=== PATIENT | female | born 1940 | race Caucasian/White ===

== ENCOUNTER 2019-06-07 02:19 | Inpatient (IN) | payer OTHER, MEDICARE ==
[~2019-06-07] VITALS: Ht 154.9 cm; Wt 51.3 kg
--- NOTE | ~2019-06-07 | EMS ---
[address] [address] EMS Patient Care Report Name: DORIS MARTINS Room #: PRE Amaris#: [id number] Admission: Attend Phys: Discharge: Date of : 42 Report #: [id number] THIS REPORT FOR: //name// Report Transmitted: 06/07/2019 01:51 EMS Care Summary [facility] MED-ACT Incident [id number] @ 06/07/2019 01:35 Incident Location [address] [place] [address] Patient DORIS MARTINS Female, 79 Years 1940 Patient Address [address] [place] [address] Patient History Diabetes, Patient Allergies No known allergies, Patient Medications Insulin, Chief Complaint Altered Mental status Disposition Transported No Lights/[place] Dispatch Reason Choking Transported To [facility] Narrative M1134 was dispatched to the listed location for a code 1 choking. Upon arrival patient was lying supine in bed with minor snoring respirations. 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 stated that he woke up to her snoring and tried to wake her. [address] [address] EMS Patient Care Report Name: DORIS MARTINS Room #: [facility] [place].#: [id number] Admission: Attend Phys: Discharge: Date of : 42 Report #: [id number] stated that the patient was not able to be woken up and he thought that she was choking on something. did not think she had anything to eat or drink. Patient was able to open eyes on command but not keep them open, patient was able to follow some commands. Patient was able to make some verbal communication but some of it was confusion and some of it was coherent. A CPHSS was able to be performed once we moved patient to the back of the ambulance, patient appeared to be able to follow commands better. Negative arm drift, negative facial droop, speech appeared to still be slurred. Stroke activation and LVO screening was completed. stated that she had not had any recent trauma or illnesses and that her only PMH was diabetes. Denied any cardiac Hx. Initial Vitals @01:49MI Suspected: false @02:02P: 102,R: 17,BP: 120/61,EtCO2: 27,SpO2: 92, @02:07P: 86,R: 5,BP: 127/55,EtCO2: 40,SpO2: 92, @01:57P: 95,R: 21,BP: 123/61,Temp: 96.5F,EtCO2: 12,SpO2: 94, @01:44P: 92,R: 20,BP: 126/63,Pain: 0/10,GCS: 12,Glucose: 195,SpO2: 88,Revised Trauma: 11, Assessments @01:44MENTAL:Confused,SKIN:Diaphoresis,Pale,HEENT:LUNG SOUNDS:Left Lower: Distension,Right Lower: Distension,Right Lower: Mass,General: No Abnormalities,Left Upper: No Abnormalities,Right Upper: No Abnormalities,ABDOMEN:Left Lower: Distension,Right Lower: Distension,Right Lower: Mass,General: No Abnormalities,Left Upper: No Abnormalities,Right Upper: No Abnormalities,PELVIS//GI:EXTREMITIES:Left Arm: No Abnormalities,Right Arm: No Abnormalities,Left Leg: No Abnormalities,Right Leg: No Abnormalities,PULSE:NEURO:Abnormal Gait,Slurred Speech, Impression Altered Mental Status Procedures @01:4912-Lead ECGResponse: UnchangedSucceeded@02:02Normal Saline (.9% NaCl) 150cc (20 ga) Site: Hand-RightResponse: UnchangedSucceeded Timeline 01:35,Call Received 01:35,Psap Call 01:35,Dispatched 01:36,En Route 01:42,On Scene 01:43,At Patient 01:44,BP: 126/63 M,PULSE: 92,RR: 20 R,SPO2: 88 Ox,ETCO2: ,B,PAIN: 0,GCS: 12, 01:49,12-Lead ECG,Response: UnchangedSucceeded, [facility] [address] [place] [address] EMS Patient Care Report Name: DORIS MARTINS Room #: PRE ER M.R.#: [id number] Admission: Attend Phys: Discharge: Date of : 42 Report #: [id number] 01:49,BP: / M,PULSE: ,RR: R,SPO2: Ox,ETCO2: ,BG: ,PAIN: ,GCS: , 01:57,BP: 123/61 M,PULSE: 95,RR: 21 R,SPO2: 94 Ox,ETCO2: 12 ,BG: ,PAIN: ,GCS: , 02:02,Normal Saline (.9% NaCl) 150cc 20 ga Site: Hand-Right,Response: UnchangedSucceeded, 02:02,BP: 120/61 M,PULSE: 102,RR: 17 R,SPO2: 92 Ox,ETCO2: 27 ,BG: ,PAIN: ,GCS: , 02:04,Depart Scene 02:07,BP: 127/55 M,PULSE: 86,RR: 5 R,SPO2: 92 Ox,ETCO2: 40 ,BG: ,PAIN: ,GCS: , 02:12,At Destination 02:46,Call Closed Disclaimer v1.1 Copyright 2019 [employer] This EMS Care Summary contains data elements from the applicable legal record (which may be displayed differently). It is designed to provide pertinent information for the following purposes: continuity of care, clinical quality, and state data reporting. The complete legal record is available to ED staff and administrators of the receiving hospital in [employer]'s Patient Tracker. All data is provided "as is."
[2019-06-07 02:21] VITALS: BP 123/99
[2019-06-07 03:09] LABS: ABSOLUTE NEUTROPHILS 2.4 thou/uL (1.4-8.2); BASOPHILS 0.5 % (0.0-2.0); EOSINOPHILS 3.4 % (0.0-3.0); HEMATOCRIT 34.3 % (37.0-47.0); LYMPHOCYTES 22.8 % (24.0-44.0); MCHC 32.1 g/dL (28.0-37.0); MCV 93.6 fL (80.0-100.0); MONOCYTES 8.9 % (1.0-8.0); PLATELET COUNT 188 thou/uL (150-400); POLYS 64.4 % (36.0-66.0); RBC 3.67 mil/uL (4.20-5.00); RDW 14.2 % (10.5-14.5); WBC 3.7 thou/uL (4.0-11.0)
[2019-06-07 03:12] LABS: ANION GAP 5 mmol/L (7-16); BUN 23 mg/dL (7-18); CALCIUM 8.5 mg/dL (8.5-10.1); CHLORIDE 103 mmol/L (98-107); CO2 31 mmol/L (21-32); CREATININE 0.7 mg/dL (0.6-1.0); GLUCOSE 174 mg/dL (74-106); SODIUM 139 mmol/L (136-145)
[2019-06-07 03:23] LABS: ALBUMIN 3.3 g/dL (3.4-5.0); MAGNESIUM 1.6 mg/dL (1.8-2.4); SGOT 27 U/L (15-37); SGPT 18 U/L (30-65); TOTAL BILIRUBIN 0.5 mg/dL (<0.1-1.0); TOTAL PROTEIN 6.2 g/dL (6.4-8.2); TROPONIN-I <0.06 ng/mL (<0.06)
[2019-06-07 03:28] LABS: URINE BILIRUBIN NEGATIVE (Negative); URINE BLOOD 1+ (Negative); URINE CLARITY CLEAR; URINE COLOR YELLOW; URINE GLUCOSE-RANDOM* 1+ (Negative); URINE KETONES NEGATIVE (Negative); URINE LEUKOCYTES-REFLEX NEGATIVE (Negative); URINE NITRITE-REFLEX NEGATIVE (Negative); URINE PROTEIN (DIPSTICK) NEGATIVE (Negative); URINE SPECIFIC GRAVITY 1.015 (1.005-1.035); URINE UROBILINOGEN 0.2 E.U./dl (0.2-1.0)
[2019-06-07 03:36] LABS: AMP/METHAMP Negative (Negative); BARBITURATES Negative (Negative); BENZODIAZEPINES Negative (Negative); COCAINE Negative (Negative); METHADONE Negative (Negative); OPIATES Negative (Negative); PCP Negative (Negative)
[2019-06-07 03:40] LABS: SQUAMOUS 0-3 Few /LPF (0-3)
[2019-06-07 03:41] LABS: BACTERIA-REFLEX None Seen /HPF (None Seen); CASTS None Seen /LPF (None Seen); CRYSTALS None Seen /LPF (None Seen); MUCUS 0-3 Light strn/LPF (None Seen); URINE RBC 3-10 Few /HPF (0-2); URINE WBC-REFLEX 0-5 Rare /HPF (0-5)
--- NOTE | 2019-06-07 08:12 | EKG ---
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 : 1940 Requested By: Marlon Parks Order Number: [id number] MD: Dion Schaefer Measurements Intervals [place] Rate: 80 P: 74 NM: 186 QRS: -32 QRSD: 135 T: 85 QT: 454 QTc: 524 Interpretive Statements Sinus rhythm Left bundle branch block Compared to ECG 06/30/2016 15:52:40 Left bundle-branch block is now present Electronically Signed On 06-07-2019 8:12:39 CDT by Dion Schaefer [email or web address] <ELECTRONICALLY SIGNED> By: Dion Schaefer MD, [facility] 06/07/19 0812 9 9 Dion Schaefer MD, FAC /EPI
--- NOTE | 2019-06-07 09:29 | NUR ---
PT. VISITING WITH FAMILY AT BEDSIDE. PT. EXPRESSING HER DESIRE TO GO HOME. PT. DAUGHTER BEDSIDE AND ENCOURAGING PT. TO STAY. PT. SIGNIFICANT OTHER AT BEDSIDE.
--- NOTE | 2019-06-07 10:31 | NUR ---
PT. AGREEABLE TO ADMITTANCE. PT. AND FAMILY MADE AWARE OF PT. ROOM ASSIGNMENT
[2019-06-07 10:32] VITALS: BP 108/61
--- NOTE | 2019-06-07 10:35 | NUR ---
ATTEMPTED TO CALL REPORT TO RECEIVING RN. RECEIVING RN WILL CALL BACK FOR REPORT
[2019-06-07 11:00] VITALS: BP 102/41
[2019-06-07 11:36] VITALS: BP 105/60
--- NOTE | 2019-06-07 15:14 | NUR ---
ASSESSMENT: CM REVIEWED CHART AND MET WITH PATIENT AT THE BEDSIDE. PT REPORTS SHE LIVES AT HOME WITH HER . PT REPORTS HAVING A COUPLE OF STEPS TO ENTER THROUGH THE GARAGE WITH NO HANDRAILS AND REPORTS HER BEDRROM IS ON THE FIRST LEVEL. PT REPORTS SHE HAS A BASEMENT WITH ABOUT 14 STEPS WITH HANDRAILS. PT REPORTS SHE AMBULATES INDEPENDENTLY AND IS INDEPENDENT WITH ADLS. PT REPORTS SHE IS STILL VERY ACTIVE AND STILL SWIMS. PT REPORTS SHE HAS NOT HAD HH IN THE PAST OR BEEN TO A SNF. CM DISCUSSED ROLE. PT DOES NOT ANTICIPATE HAVING ANY NEEDS AT DISCHARGE. CM WILL CONTINUE TO FOLLOW TO ASSIST NEEDED.
[2019-06-07 15:31] VITALS: BP 105/48
[2019-06-07 19:37] VITALS: BP 112/52
--- NOTE | 2019-06-07 20:00 | NUR ---
pt admitted from ER , pt is A&O X3, but pt is forgetful , pt starts NS @ 125ML/HR, RN has called to report pt 's low bp and abnormal chest x-ray, new order received, but pt refused to start IV and po ABX, has notified about pt's refusion.
[2019-06-08 00:22] VITALS: BP 116/54
[2019-06-08 04:32] VITALS: BP 136/59
[2019-06-08 04:58] LABS: HEMOGLOBIN 11.1 gm/dL (12.0-15.0); MCH 30.1 pg (26.0-34.0); MCHC 32.6 g/dL (28.0-37.0); MCV 92.4 fL (80.0-100.0); RBC 3.68 mil/uL (4.20-5.00); RDW 13.9 % (10.5-14.5); WBC 5.2 thou/uL (4.0-11.0)
[2019-06-08 05:10] LABS: CALCIUM 8.6 mg/dL (8.5-10.1); CREATININE 0.6 mg/dL (0.6-1.0); MAGNESIUM 1.7 mg/dL (1.8-2.4); POTASSIUM 3.8 mmol/L (3.5-5.1)
[2019-06-08 07:50] VITALS: BP 128/50
[2019-06-08] MEDS ORDERED: AZITHROMYCIN 2250 MG PO (08:51)
[2019-06-08] MEDS ORDERED: HOME MEDICATION SUBQ ×2 (08:51)
[2019-06-08 11:13] VITALS: BP 128/50
[2019-06-08 11:46] VITALS: BP 97/51
--- NOTE | 2019-06-08 12:24 | NUR ---
pt is A&OX3, pt's bs and vs are stable, pt has dose abx and mag 2g /50ml iv x 1time, pt was going home with family at 1220pm, RN has giving pt and family d/c teaching, they understander well.
--- NOTE | 2019-06-09 09:41 | H ---
[facility] [place] [address] HISTORY AND PHYSICAL Name: DORIS MARTINS Room #: 362-P [facility] IN M.R.#: [id number] Admission: 06/07/19 Attend Phys: Alysia Brown MD Discharge: 06/08/19 Date of : 42 Report #: [id number] THIS REPORT FOR: //name// CC: Alysia Brown DATE OF SERVICE: 06/07/2019 ATTENDING PHYSICIAN: Alysia Brown MD CHIEF COMPLAINT: Being unresponsive at home. HISTORY OF PRESENT ILLNESS: The patient is a 79-year-old female who was difficult to arouse at night. She was noted to have excessive snoring and was lethargic and unresponsive with confused speech. The patient was noted to have hypoxia with oxygen saturation of around 87%. She had denied having any vomiting, diarrhea, urinary symptoms or sweating. The patient was evaluated in the ER and noted to have possible pneumonia. The patient is a very tightly controlled diabetic and tries to manage on insulin depending on her blood sugars. PAST MEDICAL HISTORY: Significant for insulin-dependent diabetes mellitus and a shoulder injury 9 years ago. ALLERGIES: She is not known to be allergic to medication. MEDICATIONS: Medication she was currently on was insulin. REVIEW OF SYSTEMS: She denied having any cough, nausea, vomiting, abdominal pain or any urinary symptoms. SOCIAL HISTORY: She is , lives with , does not smoke or drink alcohol. PHYSICAL EXAMINATION: GENERAL: Pleasant elderly lady who was resting, did not appear to be in distress. She was awake, alert, oriented to place and person. VITAL SIGNS: She was afebrile with a temperature of 37.1, pulse of 81, respiratory rate of 16, blood pressure 128/50, oxygen saturation 96% on room air. HEENT: Skull was atraumatic. There was no pallor, no icterus. Mucosa was moist. NECK: Supple. LUNGS: Clear to auscultation bilaterally with no wheezing or crackles. HEART: First and second normal. ABDOMEN: Soft, nontender, bowel sounds normally heard. EXTREMITIES: Did not reveal any edema. [facility] [address] [place] [address] HISTORY AND PHYSICAL Name: DORIS MARTINS Room #: 362-[facility] IN .R.#: [id number] Admission: 06/07/19 Attend Phys: Alysia Brown MD Discharge: 06/08/19 Date of : 42 Report #: [id number] NEUROLOGIC: Nonfocal. LABORATORY DATA: Labs showed a white cell count of 5.2, hemoglobin of 11.1, hematocrit 34 and a platelet count of 188. Sodium was 141, potassium 3.8, chloride 105, bicarbonate 29, BUN of 15, creatinine of 0.6 and a glucose of 127. A calcium was 8.6, magnesium of 1.7. Blood cultures were negative. A chest x-ray showed diffuse infiltrates in both lungs, more prominent on the right region. ASSESSMENT: 1. Delirium. 2. Possible pneumonia. 3. Hypomagnesemia. PLAN: To continue on the IV antibiotics and discussed with the patient that the possibility of a low hypoglycemic attack, try to cut back on her insulin use. Also, we will continue on a Z-LEATHA or Zithromax for the next seven days in view of the interstitial infiltrates and follow up in the office. <ELECTRONICALLY SIGNED> By: Alysia Brown MD 06/09/19 0941 [id number] [id number] Alysia Brown MD /nt
== END 2019-06-08 12:35 | disposition home or self-care (01) | DRG 70 ==
LOC: ER 02:19 → EROBS 04:08 → 3W 11:08
PROVIDERS: Emergency Medicine; ADMIT Internal Medicine
DX: G93.41 Metabolic encephalopathy (principal); J18.9 Pneumonia, unspecified organism; E83.42 Hypomagnesemia; E86.0 Dehydration; E11.65 Type 2 diabetes mellitus with hyperglycemia; Z79.4 Long term (current) use of insulin
CPT/HCPCS: 10879

== ENCOUNTER 2020-02-13 03:15 | Emergency (ER) | payer OTHER, MEDICARE ==
[~2020-02-13] VITALS: Ht 154.9 cm; Wt 65.8 kg
--- NOTE | ~2020-02-13 | EMS ---
[address] [address] EMS Patient Care Report Name: DORIS MARTINS Room #: DEP [facility] Glez#: [id number] Admission: 02/13/20 Attend Phys: Discharge: 02/13/20 Date of : 41 Report #: [id number] THIS REPORT FOR: //name// Report Transmitted: 02/13/2020 06:38 EMS Care Summary [facility] MED-ACT Incident [id number] @ 02/13/2020 02:35 Incident Location [address] [place] [address] Patient DORIS MARTINS Female, 80 Years 1940 Patient Address [address] [place] [address] Patient History Diabetes,Type 1 Diabetes, Patient Allergies No known allergies, Patient Medications Insulin, Chief Complaint altered loc Disposition Transported No Lights/[place] Dispatch Reason Diabetic Problem Transported To [facility] Narrative M1134 arrived on scene to find the patient laying supine in bed. Patient's advised that she came to bed around midnight last night and was fine then and found her this morning to be altered. He advised that her only medical history is type 1 diabetes and her only medicine is insulin, he thought her [facility] [address] [place] [address] EMS Patient Care Report Name: DORIS MARTINS Room #: DEP Amaris#: [id number] Admission: 02/13/20 Attend Phys: Discharge: 02/13/20 Date of : 42 Report #: [id number] sugar was low and called 911. Oxygen applied to due low SPO2, When asked patient would open her eyes and follow commands and knew here name and but not the date, time, or event. IV was established during transport BG was double checked and returned normal again. No other findings throughout EMS care. Report given to RN in ER room 6 at [place]. Initial Vitals @02:51P: 103,PR Suspected: false @03:11P: 88,R: 18,BP: 101/32,Pain: 0/10,GCS: 13,SpO2: 95,Revised Trauma: 12, @02:47P: 101,R: 16,BP: 123/65,Pain: 0/10,GCS: 13,Glucose: 146,SpO2: 88,Revised Trauma: 12, Assessments @02:46MENTAL:Person Oriented,Event Oriented,SKIN:Diaphoresis,HEENT:LUNG SOUNDS:General: No Abnormalities,Left Upper: No Abnormalities,Right Upper: No Abnormalities,Left Lower: No Abnormalities,Right Lower: No Abnormalities,ABDOMEN:General: No Abnormalities,Left Upper: No Abnormalities,Right Upper: No Abnormalities,Left Lower: No Abnormalities,Right Lower: No Abnormalities,PELVIS//GI:No Abnormalities,EXTREMITIES:Left Arm: No Abnormalities,Right Arm: No Abnormalities,Left Leg: No Abnormalities,Right Leg: No Abnormalities,PULSE:NEURO:No Abnormalities, Impression Altered Mental Status Procedures @02:5112-Lead ECGResponse: UnchangedSucceeded@03:08Saline Lock 10cc (20 ga) Site: Forearm-LeftResponse: UnchangedSucceeded Timeline 02:34,Call Received 02:34,Psap Call 02:35,Dispatched 02:37,En Route 02:43,On Scene 02:45,At Patient 02:47,BP: 123/65 M,PULSE: 101,RR: 16 R,SPO2: 88 Ox,ETCO2: ,B,PAIN: 0,GCS: 13, 02:51,12-Lead ECG,Response: UnchangedSucceeded, 02:51,BP: / M,PULSE: 103,RR: R,SPO2: Ox,ETCO2: ,BG: ,PAIN: ,GCS: , 03:02,Depart Scene 03:08,Saline Lock 10cc 20 ga Site: Forearm-Left,Response: UnchangedSucceeded, 03:11,BP: 101/32 M,PULSE: 88,RR: 18 R,SPO2: 95 Ox,ETCO2: ,BG: ,PAIN: 0,GCS: 13, 03:11,At Destination 03:35,Call Closed [address] [address] EMS Patient Care Report Name: DORIS MARTINS Room #: DEP Amaris#: [id number] Admission: 02/13/20 Attend Phys: Discharge: 02/13/20 Date of : 42 Report #: [id number] Disclaimer v1.1 Copyright 2020 [employer] This EMS Care Summary contains data elements from the applicable legal record (which may be displayed differently). It is designed to provide pertinent information for the following purposes: continuity of care, clinical quality, and state data reporting. The complete legal record is available to ED staff and administrators of the receiving hospital in [employer]'s Patient Tracker. All data is provided "as is."
[~2020-02-13 03:15] MED LIST: AZITHROMYCIN 2250 MG PO; HOME MEDICATION SUBQ
[2020-02-13 03:39] LABS: ABSOLUTE NEUTROPHILS 2.4 thou/uL (1.4-8.2); EOSINOPHILS 6.8 % (0.0-3.0); HEMATOCRIT 36.2 % (37.0-47.0); HEMOGLOBIN 11.9 gm/dL (12.0-15.0); LYMPHOCYTES 30.4 % (24.0-44.0); MCH 30.6 pg (26.0-34.0); MCHC 32.8 g/dL (28.0-37.0); MCV 93.4 fL (80.0-100.0); MONOCYTES 8.9 % (1.0-8.0); PLATELET COUNT 199 thou/uL (150-400); POLYS 52.9 % (36.0-66.0); RBC 3.87 mil/uL (4.20-5.00); RDW 13.4 % (10.5-14.5); WBC 4.5 thou/uL (4.0-11.0)
[2020-02-13 03:45] LABS: ANION GAP 6 mmol/L (7-16); BUN 27 mg/dL (7-18); CALCIUM 8.7 mg/dL (8.5-10.1); CHLORIDE 100 mmol/L (98-107); CO2 31 mmol/L (21-32); CREATININE 0.9 mg/dL (0.6-1.0); GLUCOSE 145 mg/dL (74-106); POTASSIUM 3.7 mmol/L (3.5-5.1); SODIUM 137 mmol/L (136-145)
[2020-02-13 03:57] LABS: ALBUMIN 3.3 g/dL (3.4-5.0); MAGNESIUM 1.9 mg/dL (1.8-2.4); SGOT 30 U/L (15-37); SGPT 26 U/L (30-65); TOTAL BILIRUBIN 0.7 mg/dL (0.2-1.0); TOTAL PROTEIN 6.1 g/dL (6.4-8.2); TROPONIN-I <0.06 ng/mL (<0.06)
[2020-02-13 05:12] LABS: AMP/METHAMP Negative (Negative); BARBITURATES Negative (Negative); BENZODIAZEPINES Negative (Negative); COCAINE Negative (Negative); METHADONE Negative (Negative); OPIATES Negative (Negative); PCP Negative (Negative)
[2020-02-13 05:19] LABS: URINE CLARITY SL HAZY; URINE COLOR YELLOW; URINE PROTEIN (DIPSTICK) NEGATIVE (Negative); URINE SPECIFIC GRAVITY 1.025 (1.005-1.035)
[2020-02-13 05:20] LABS: URINE BILIRUBIN NEGATIVE (Negative); URINE BLOOD 2+ (Negative); URINE GLUCOSE-RANDOM* NEGATIVE (Negative); URINE KETONES NEGATIVE (Negative); URINE LEUKOCYTES-REFLEX NEGATIVE (Negative); URINE NITRITE-REFLEX NEGATIVE (Negative); URINE UROBILINOGEN 0.2 E.U./dl (0.2-1.0)
[2020-02-13 05:51] LABS: SQUAMOUS 0-3 Few /LPF (0-3); URINE WBC-REFLEX 0-5 Rare /HPF (0-5)
[2020-02-13 05:52] LABS: BACTERIA-REFLEX 1-9 Few /HPF (None Seen); CASTS None Seen /LPF (None Seen); CRYSTALS None Seen /LPF (None Seen); MUCUS 0-3 Light strn/LPF (None Seen)
[2020-02-13 06:20] VITALS: BP 124/50
--- NOTE | 2020-02-13 16:38 | EKG ---
[facility] [place] [address] ELECTROCARDIOGRAM REPORT Name: DORIS MARTINS Room #: DEP [facility]#: [id number] Admission: 02/13/20 Attend Phys: Discharge: 02/13/20 Date of : 42 Report #: [id number] THIS REPORT FOR: cc: Alysia Vences MD, Stany A. MD Lundgren,Dion Upton MD 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 02/13/20 1637 0333 0333 Dion Schaefer MD, [facility] /EPI
== END 2020-02-13 06:41 | disposition home or self-care (01) ==
LOC: ER 03:15
PROVIDERS: Emergency Medicine
DX: R31.29 Other microscopic hematuria (principal); R41.0 Disorientation, unspecified; E11.649 Type 2 diabetes mellitus with hypoglycemia without coma; Z79.2 Long term (current) use of antibiotics

== ENCOUNTER 2020-06-11 03:35 | Inpatient (IN) | payer OTHER, MEDICARE ==
[~2020-06-11] VITALS: Ht 117.3 cm; Wt 53.3 kg
--- NOTE | ~2020-06-11 | EEG ---
[facility] [place] [address] ELECTROENCEPHALOGRAM Name: DORIS MARTINS Room #: 452-P [facility] IN M.R.#: [id number] Admission: 06/11/20 Attend Phys: Leonard Hyatt MD Discharge: 06/12/20 Date of : 42 Report #: [id number] THIS REPORT FOR: //name// CC: Leonard Hatfield Vangie DATE OF SERVICE: 06/11/2020 FINDINGS: This patient is being evaluated for the possibility of seizure. EEG was done by placing the electrodes by standard 10-20 system of electrode placement. Both referential and sequential montages were used for recording, a lot of artifact is present. Background activity is difficult to determine because of a lot of artifact. It does appear to be about 8 Hz and 30 microvolt. The patient became drowsy and that is associated with bilateral slowing and vertex sharp waves. Photic stimulation is unremarkable. Throughout the record, no active epileptiform activity was noticed. IMPRESSION: A lot of artifact is present, making the interpretation of this EEG difficult. It does not appear to be showing any active epileptiform activity. It does appear to be some nonspecific slowing, which can occur with drowsiness, effect of psychotropic medication, dementia, encephalopathy, etc. Clinical correlation recommended. By: 1135 1145 Bubba Clayton MD /nt
--- NOTE | ~2020-06-11 | HC ---
[facility] [place] [address] CONSULTATION Name: DORIS MARTINS Room #: 452-P ADM IN M.R.#: [id number] Admission: 06/11/20 Attend Phys: Leonard Hyatt MD Discharge: Date of : 42 Report #: [id number] THIS REPORT FOR: cc: Alysia Vences MD, Stany A. MD Khosla, Parveen K. MD ~ DATE OF SERVICE: 06/11/2020 HISTORY OF PRESENT ILLNESS: This is a 80-year-old female patient who was evaluated for the possibility of seizure. I reviewed the patient's records. I talked to the patient. I talked to the significant other and it looks like the patient has been admitted multiple times with altered mental status. She said yesterday she passed out. She has difficult time answering the questions. She thinks it happened because of low blood sugar. When EMS arrived, the blood sugar was 69, but it is not clear what the blood sugar was before. Significant other says that there was some question of shaking when it happened. I reviewed prior records. This looks like she had CT scan done and she has been admitted with the same kind of confusion. Review of systems indicates she has a history of diabetes. She says her blood sugar does go down. It does go into 40s sometime. She has a history of hypomagnesemia. She has a history of community-acquired pneumonia in the past. She was given Keppra in the Emergency Room. She has an EEG ordered for her, which is not done yet. REVIEW OF SYSTEMS: A 14-point review of system was carried out. She still looks confused to me and does not appear to be completely on her baseline, but she is not complaining of any eye, ENT, cardiac, respiratory, , musculoskeletal, constitutional, dermatological, hematological, psychiatric, throat symptom associated with present symptomatology. She had some nausea yesterday, which has resolved. PAST MEDICAL HISTORY: Positive for episode of altered mental status. It is not clear if they were hypoglycemia or not. FAMILY HISTORY: Unremarkable. Negative for any early age stroke. SOCIAL HISTORY: She does not smoke or drink alcohol. PHYSICAL EXAMINATION: Indicates she is alert and responsive. She can tell me what month it is. She could not tell me the exact date. She can name the present president, but cannot do the one before. Cranial nerve examination 2-12 was difficult, but I think she can move in all directions her eyes and she does reasonably well with the visual field evaluation. She does not appear to have [address] [address] CONSULTATION Name: DORIS MARTINS Room #: 452-P [facility] IN .R.#: [id number] Admission: 06/11/20 Attend Phys: Leonard Hyatt MD Discharge: Date of : 42 Report #: [id number] any meningeal sign. She moves all 4 extremities. Her position sense is intact. Reflexes are symmetrical. Her sensation, she does have a sensation and she said her feeling is intact on both sides. There is no cerebellar sign. I could not look at the patient's fundus. She is not having any respiratory difficulty. Her cardiac examination is unremarkable. She is reasonably well-developed individual. Her blood pressure is 112/45, respirations 13, pulse is 85, temperature is 97.9. LABORATORY DATA: Her white count is 4.6. She did have a CT scan of the head, which showed a question of meningioma. 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 That is an epileptiform area and can give rise to seizure, but this patient also had recurrent episode of hypoglycemia at least by history. Here, her blood sugar is not too low when checked by EMS, but it may have been lower before that. I think we need to work her up from both fronts. She is already scheduled for an EEG. I will do an MRI of the brain with and without contrast. I discussed the potential side effect of contrast with her and she is okay with that. Her kidney function is normal. I will do an MRI of the brain with and without contrast. We will do an EEG. We will see how her blood sugar is then decide about continuing or not continuing the patient's anticonvulsant. She should not drive. Dr. Grider will follow up this patient with you from tomorrow. By: [id number] Bubba Clayton MD /nt
--- NOTE | ~2020-06-11 | EMS ---
[address] [address] EMS Patient Care Report Name: DORIS MARTINS Room #: 452-P ADM IN M.R.#: [id number] Admission: 06/11/20 Attend Phys: Leonard Hyatt MD Discharge: Date of : 42 Report #: [id number] THIS REPORT FOR: //name// Report Transmitted: 06/11/2020 18:09 EMS Care Summary [facility] MED-ACT Incident [id number] @ 06/11/2020 02:45 Incident Location [address] [place] [id number] Patient DORIS MARTINS Female, 80 Years 1940 Patient Address [address] [place] [address] Patient History Type 1 Diabetes, Patient Allergies No known allergies, Patient Medications Insulin, Chief Complaint Altered Mental State Disposition Transported No Lights/[place] Reason Diabetic Problem Transported To [facility] Narrative CHIEF COMPLAINT: Not responding to H.P.I.: Doris Martins, a 80 y.o.f., was not acting right nor responding to her . [address] [address] EMS Patient Care Report Name: DORIS MARTINS Room #: 452-P ADM IN M.R.#: [id number] Admission: 06/11/20 Attend Phys: Leonard Hyatt MD Discharge: Date of : 41 Report #: [id number] Last known normal was between 7101-0386 tonight. reported she was diabetic and takes insulin. No recent illness, no dementia reported. UPON ARRIVAL: Mrs. Martins was supine in bed. She was counting out loud (incorrectly). Her speech was clear even when babbling incoherently. She was moving all her extremities. She was cool to touch. She kept her eyes closed, and fought to keep them so when I tried to open her eyelids manually. TREATMENT: None rendered DISPOSITION: After evaluating her, including obtaining a second blood glucose level with a different glucometer, we retrieved a tarp to move her to the stretcher. Transport was non-emergent to [facility] e.d. as per the choice of her . No incidents or changes en route. We were directed to rm 8. We slid her to the hospital bed in the tarp, then log-rolled her to remove it. Erica, an RN, received my report. Initial Vitals @03:10Glucose: 72, @02:58P: 98,BP: 145/72,Pain: 0/10,GCS: 10,Glucose: 68,SpO2: 93, @03:15P: 85,R: 16,BP: 118/64,Pain: 2/10,GCS: 10,Temp: 97.8F,SpO2: 92,Revised Trauma: 11, @03:27P: 81,R: 24,BP: 115/51,GCS: 10,SpO2: 95,Revised Trauma: 11, @03:17P: 86,PR Suspected: false Assessments @02:55MENTAL:Combative,Confused,Unresponsive,SKIN:Jaundiced,Pale,HEENT:Head/Face : No Abnormalities,LUNG SOUNDS:General: No Abnormalities,ABDOMEN:General: No Abnormalities,PELVIS//GI:EXTREMITIES:Left Arm: No Abnormalities,Right Arm: No Abnormalities,Left Leg: No Abnormalities,Right Leg: No Abnormalities,PULSE:NEURO: Impression Altered Mental Status Procedures @03:15Surgical Mask on PatientResponse: Unchanged Timeline 02:44,Call Received [facility] [address] [place] [address] EMS Patient Care Report Name: DORIS MARTINS Room #: 452-[facility] IN M.R.#: [id number] Admission: 06/11/20 Attend Phys: Leonard Hyatt MD Discharge: Date of : 42 Report #: [id number] 02:44,Psap Call 02:45,Dispatched 02:47,En Route 02:51,On Scene 02:53,At Patient 02:58,BP: 145/72 M,PULSE: 98,RR: R,SPO2: 93 Ox,ETCO2: ,B,PAIN: 0,GCS: 10, 03:10,BP: / M,PULSE: ,RR: R,SPO2: Ox,ETCO2: ,B,PAIN: ,GCS: , 03:15,Surgical Mask on Patient,Response: Unchanged 03:15,BP: 118/64 M,PULSE: 85,RR: 16 R,SPO2: 92 Ox,ETCO2: ,BG: ,PAIN: 2,GCS: 10, 03:17,BP: / M,PULSE: 86,RR: R,SPO2: Ox,ETCO2: ,BG: ,PAIN: ,GCS: , 03:18,Depart Scene 03:27,BP: 115/51 M,PULSE: 81,RR: 24 R,SPO2: 95 Ox,ETCO2: ,BG: ,PAIN: ,GCS: 10, 03:30,At Destination 04:01,Call Closed Disclaimer v1.1 Copyright 2020 [employer] This EMS Care Summary contains data elements from the applicable legal record (which may be displayed differently). It is designed to provide pertinent information for the following purposes: continuity of care, clinical quality, and state data reporting. The complete legal record is available to ED staff and administrators of the receiving hospital in [employer]'s Patient Tracker. All data is provided "as is."
[2020-06-11 03:39] VITALS: BP 123/61
[2020-06-11 03:56] LABS: ABSOLUTE NEUTROPHILS 2.1 thou/uL (1.4-8.2); BASOPHILS 0.5 % (0.0-2.0); EOSINOPHILS 4.6 % (0.0-3.0); HEMATOCRIT 36.2 % (37.0-47.0); HEMOGLOBIN 11.7 gm/dL (12.0-15.0); LYMPHOCYTES 39.7 % (24.0-44.0); MCH 30.2 pg (26.0-34.0); MCHC 32.4 g/dL (28.0-37.0); MONOCYTES 9.3 % (1.0-8.0); PLATELET COUNT 216 thou/uL (150-400); POLYS 45.9 % (36.0-66.0); RBC 3.89 mil/uL (4.20-5.00); WBC 4.6 thou/uL (4.0-11.0)
[2020-06-11 04:03] LABS: CALCIUM 9.1 mg/dL (8.5-10.1); CREATININE 0.8 mg/dL (0.6-1.0); POTASSIUM 3.5 mmol/L (3.5-5.1)
[2020-06-11 04:04] LABS: URINE BILIRUBIN NEGATIVE (Negative); URINE BLOOD 1+ (Negative); URINE CLARITY CLEAR; URINE COLOR YELLOW; URINE GLUCOSE-RANDOM* NEGATIVE (Negative); URINE KETONES NEGATIVE (Negative); URINE LEUKOCYTES-REFLEX NEGATIVE (Negative); URINE NITRITE-REFLEX NEGATIVE (Negative); URINE PROTEIN (DIPSTICK) NEGATIVE (Negative); URINE UROBILINOGEN 0.2 E.U./dl (0.2-1.0)
[2020-06-11 04:17] LABS: BACTERIA-REFLEX None Seen /HPF (None Seen); CASTS None Seen /LPF (None Seen); CRYSTALS None Seen /LPF (None Seen); MUCUS 0-3 Light strn/LPF (None Seen); SQUAMOUS 0-3 Few /LPF (0-3); URINE RBC 3-10 Few /HPF (0-2); URINE WBC-REFLEX 0-5 Rare /HPF (0-5)
[2020-06-11 05:32] LABS: ALBUMIN 3.4 g/dL (3.4-5.0); DIRECT BILIRUBIN 0.3 mg/dL (<0.1-0.2); MAGNESIUM 1.8 mg/dL (1.8-2.4); SGOT 22 U/L (15-37); SGPT 15 U/L (30-65); TOTAL BILIRUBIN 0.6 mg/dL (0.2-1.0); TOTAL PROTEIN 6.4 g/dL (6.4-8.2)
[2020-06-11 05:46] LABS: AMP/METHAMP Negative (Negative); BARBITURATES Negative (Negative); BENZODIAZEPINES Negative (Negative); COCAINE Negative (Negative); METHADONE Negative (Negative); OPIATES Negative (Negative); PCP Negative (Negative)
[2020-06-11 05:48] LABS: TROPONIN-I <0.06 ng/mL (<0.06)
[2020-06-11 07:00] VITALS: BP 112/45
--- NOTE | 2020-06-11 07:56 | EKG ---
[facility] [place] [address] ELECTROCARDIOGRAM REPORT Name: DORIS MARTINS Room #: 452- ADM IN M.R.#: [id number] Admission: 06/11/20 Attend Phys: Leonard Hyatt MD Discharge: Date of : 42 Report #: [id number] THIS REPORT FOR: cc: Alysia Vences MD, Stany A. 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 : 1940 Requested By: Leonard Hyatt Order Number: [id number] MD: Ed Ram Measurements Intervals [place] Rate: 76 P: 82 CO: 185 QRS: 71 QRSD: 103 T: 64 QT: 401 QTc: 451 Interpretive Statements Sinus rhythm Atrial premature complexes in couplets Probable left atrial enlargement Minimal ST depression, lateral leads Compared to ECG 02/13/2020 03:33:47 Atrial premature complex(es) now present Left bundle-branch block no longer present Electronically Signed On 06-11-2020 7:56:44 CDT by Ed Ram [email or web address] <ELECTRONICALLY SIGNED> By: Ed Ram MD, FACC 06/11/20 0756 7 7 Ed Ram MD, [facility] /EPI
--- NOTE | 2020-06-11 12:10 | NUR ---
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 CM REVIEWED CHART AND SPOKE WITH CARE TEAM. CM MET WITH PT'S SIGNIFICANT OTHER AT BEDSIDE THIS DAY. HE INDICATED THAT THEY RESIDE IN A HOUSE WITH 1 STEP TO ENTER NO STEPS INSIDE. 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 HE INDICATED THAT PT'S PCP IS DR. EPPS. HE INDICATED NO HH HX. HE STATED THAT HE WOULD ANTIPATE PT RETURNING HOME ONCE MEDICALLY STABLE. CM TO FOLLOW INDICATED WITH DC PLANNING. NEUORLOGY CONSULTED. PT HAD EEG DONE THIS DAY.
[2020-06-11 15:23] VITALS: BP 114/99
--- NOTE | 2020-06-11 15:27 | NUR ---
0721 PATIENT ADMITTED TO ROOM 452. PATIENT IS STILL POST ICTAL, BUT ABLE TO ANSWER SOME OF MY QUESTIONS. PATIENT VOIDED PER BEDPAN. PATIENT DOESN'T REMEMBER WHAT HAPPEDED OR WHAT BROUGHT HER TO THE ER. PATIENT ABLE TO FOLLOW COMMANDS. CLAUDIA, NO FACIAL DROOP OR SLURED SPEECH. PATIENT ABLE TO HOOD'S, PARTS REPRESENTATIVE ARE EQUAL. LUNGS ARE CLEAR. ABD IS SOFT WITH BSX4. BS 99 FROM ED. 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 PATIENT HAD N/V AND WAS GIVEN ZOFRAN IV. SIGNIFICANT OTHER HERE. INFORMED HIM THAT WE NEED PATIENTS MED BOTTLES AND VITAMIN BOTTLES, AND INSULIN TYPES. HE VERBALIZED UNDERSTANDING. SENIOR SALES ASSISTANT HERE TO SEE PATENT . NEUROLOGIST HERE TO SEE PATIENT, PLAN EEG NEXT. COVID TEST DONE AND IT WAS NEGATIVE. PATIENT RECIEVED IV PEPCID AND SQ HEPARIN. S.T. HERE TO DO EVAL. PATIENT WANTS TO GO HOME TO GET HER INSULIN AND BREAKFAST. PT REDIRECTED THAT SHE IS IN [facility] AND WE WILL BE PROVIDING ALL OF HER MEDS. FALL AND SAFETY PROTOCOLS IN PLACE. DENIES PAIN AT THIS TIME. WILL CONTINUE TO MONITER
[2020-06-11 15:35] VITALS: BP 97/35
[2020-06-11 20:39] VITALS: BP 102/30
[2020-06-12 05:12] LABS: GLYCOHEMOGLOBIN (HGB A1C) 5.8 % (4.8-5.6)
[2020-06-12 06:05] LABS: ABSOLUTE NEUTROPHILS 3.8 thou/uL (1.4-8.2); BASOPHILS 0.5 % (0.0-2.0); EOSINOPHILS 0.6 % (0.0-3.0); HEMATOCRIT 33.1 % (37.0-47.0); MCH 30.7 pg (26.0-34.0); MCHC 33.3 g/dL (28.0-37.0); MCV 92.3 fL (80.0-100.0); MONOCYTES 8.1 % (1.0-8.0); PLATELET COUNT 185 thou/uL (150-400); POLYS 69.8 % (36.0-66.0); RBC 3.58 mil/uL (4.20-5.00); RDW 13.7 % (10.5-14.5); WBC 5.5 thou/uL (4.0-11.0)
[2020-06-12 06:22] LABS: CALCIUM 8.9 mg/dL (8.5-10.1); CREATININE 0.7 mg/dL (0.6-1.0); MAGNESIUM 1.9 mg/dL (1.8-2.4); POTASSIUM 3.9 mmol/L (3.5-5.1)
[2020-06-12 07:18] VITALS: BP 111/41
--- NOTE | 2020-06-12 08:11 | NUR ---
Assumed care on 06/11/20 @ 19:30, Cooperated with assessment, oriented x3, not able to say who the president is. Fall risk, bed alarm set, patient is impulsive and gets out of bed without consideration for own safety. Expresses paranoid ideation, is suspicious of each medication. Each med shown to patient and name of med as well as purpose explained. Acucheck 372 @ HS, S/S of 12 units indicated, Patient refused 12 units of insulin, and instead asked for 2 units. Shown the sliding scale on the computer and explained how to read the Acucheck levels and Sliding scale. Order obtained from Martín Henley to give patient 3 U of insulin, which she agreed to. Patient had home insulin and syringes at bedside. There was a used insulin syringe on her bedside table within the patient's reach. When asked if she had given herself insulin while in the hospital, she gave an answer that seemed to be deceptive as well as confused. Even after giving patient the amount of insulin that she wanted, she continued to say that she wanted to leave the hospital. @ about midnight she packed her bag and attempted to elope from the floor. Redirected to bed and confirmed with Flyer Maker, Erica that patient was not able to make her own decisions to leave AMA. Order obtained for Ativan 0.5mg. Patient noted to have removed her IV access without staff assistance. Ativan given IV, significant other advised that patient agreed to stay overnight, and talk to the doctor during rounding the next morning about leaving the hospital, and when her seizure meds would make it safe for her to leave. Helped patient call and speak to significant other
[2020-06-12] MEDS ORDERED: LEVETIRACE100 MG/1 M PO (10:46)
--- NOTE | 2020-06-12 10:52 | NUR ---
CARE TEAM HAD INDICATED THAT THEY WANTED TO DO AND MRI OF THE HEAD BUT PT REFUSED. HOSPITALIST HAD INDICATED POSSIBLE DC HOME WITH HH SERVICES. CM MET WITH PT AND SIG OTHER AT BEDSIDE THIS AM TO DISCUSS PREFERENCE FOR HH SERVICES AND THEY INDICATED THAT THEY DIDN'T WANT ANYONE COMING INTO THEIR HOME. PT INDICATED THAT SHE DIDN'T THINK SHE NEEDED SUCH SERVICES AT THIS TIME. THAT SHE IS VERY ACTIVE AND INDEPENDENT. CM NOTIFIED PHYSICIAN AND HE INDICATED THAT PT COULD BE DISCHARGE HOME TO SELF CARE. PT REFUSING HOME HEALTH SERVICES AT TIME OF DISCHARGE. PT TO DISCHARGE HOME TO SELF CARE. NO OTHER CM INTERVENTION INDICATED. CASE CLOSED.
[2020-06-12 12:07] VITALS: BP 111/41
--- NOTE | 2020-06-12 13:55 | NUR ---
Assumed care of patient at 0700. Up in room. Reminded to maintain Fall precautions. Up ad teja in room. Gait steady. Alert and oriented X4. No IV access. Brusising note don arms. Brath sounds clear. abdomin without tenderness. Bowel sounds present. Pleasant. Asks many questions. Takes a few minutes to process information but is coherent and organized. Cooperative with diabetes regimen. Refused Keppra PO dose. Reviewed discharge instructions with patient. Discussed keppra prescription. Patient noted she was missing some insulin syringes. Search for items was unsuccessful. Discharged at 1350 via wheelchair to home.
== END 2020-06-12 14:12 | disposition home or self-care (01) | DRG 100 ==
LOC: ER 03:35 → 4W 07:19
PROVIDERS: Emergency Medicine; Nurse Practitioner; ADMIT Hospitalist; ATTEND Hospitalist
DX: G40.909 Epilepsy, unspecified, not intractable, without status epilepticus (principal); J96.01 Acute respiratory failure with hypoxia; Z20.828 Contact with and (suspected) exposure to other viral communicable diseases; D32.9 Benign neoplasm of meninges, unspecified; E11.9 Type 2 diabetes mellitus without complications; Z79.4 Long term (current) use of insulin; Z79.899 Other long term (current) drug therapy; Z28.21 Immunization not carried out because of patient refusal
CPT/HCPCS: 10045

== ENCOUNTER 2020-10-29 07:46 | Emergency (ER) | payer OTHER, MEDICARE ==
[~2020-10-29] VITALS: Ht 154.9 cm; Wt 59.0 kg
--- NOTE | ~2020-10-29 | HC ---
[facility] [place] [address] CONSULTATION Name: DORIS MARTINS [id number] Admission: 10/29/20 Attend Phys: Discharge: 10/29/20 Date of : 42 Report #: [id number] THIS REPORT FOR: cc: Alysia Vences MD, Stany A. MD Khosla,Bubba Ballard MD ~ DATE OF SERVICE: 10/29/2020 HISTORY OF PRESENT ILLNESS: This 80-year-old female patient who was evaluated by me at the request of Emergency Room physician, Dr. Wolfe. The patient was discussed with her before and after seeing the patient. The patient underplays her symptoms and she says she passed out. Her blood sugar apparently was normal. Apparently, she was confused, but she denies any confusion. In between, she became combative and confused. Then, she became more cooperative. She feels she is back to her baseline. I reviewed the patient's old records and it looks like she saw me and subsequently she saw Dr. Grider, but did not followup on any recommendation and she admits that. She was supposed to have an MRI. She was supposed to be on Keppra. She never took any Keppra and she went home. REVIEW OF SYSTEMS: A 14-point review of system was carried out and looks like the patient has a meningioma. Dr. Grider's impression was that she had a seizure and the recommendation was that she should be on seizure medication, but she never took. A 14-point review of system was carried out and she does not complain of any new eye, ENT, cardiac, respiratory, GI, , musculoskeletal, constitutional, dermatological, hematological, psychiatric, throat allergic symptom associated with present symptomatology. PAST MEDICAL HISTORY: Positive for similar spell. She was in fact admitted to this hospital, but she never followed up on anything. FAMILY HISTORY: Negative for seizures. SOCIAL HISTORY: She says she does not drink any alcohol. PHYSICAL EXAMINATION: NEUROLOGIC: Indicate she is alert. She is responsive. She can follow simple commands. She knows what month it is. She can tell me what date it is, it takes a little while to process it. She says that she is supposed to get a vaccine on and this is not the time. She knew who the president is. She knows what hospital she is in. Cranial nerve examination 2-12 looks unremarkable. Neuromuscular examination is symmetrical. She has no meningeal sign. I could not look at the patient's fundus. There is no cerebellar sign. CARDIAC: Unremarkable. LUNGS: No respiratory difficulty was noticed in this patient. [address] [address] CONSULTATION Name: DORIS MARTINS Room #: DEP [facility] Glez#: [id number] Admission: 10/29/20 Attend Phys: Discharge: 10/29/20 Date of : 42 Report #: [id number] VITAL SIGNS: Her blood pressure is 115/54, respirations 16, pulse is 66, temperature is 97.8. LABORATORY DATA: Lab indicate a normal white count, blood sugar is somewhat high at 233. She had a CT scan last time and she had another CT scan today, which showed a meningioma, but otherwise no acute abnormality. IMPRESSION: I told the patient that she needs to come to the hospital and she needs to get admitted to have further workup done. She adamantly refused that. I discussed with her the reason I want to do the workup and the consequences of not doing that and the consequences of noncompliance. All I could talk this patient doing was that she will go on medication. She will take seizure precautions, but she will not come to the hospital. I told her that if she goes hospital, she has to go against medical advice. Subsequently, I talked to the Emergency Room physician and told her that we should put her on Keppra 500 mg p.o. b.i.d. Since she does not want to stay in the hospital, I am not sure what can be done because that is the right thing to do because she needs workup on multiple fronts. Otherwise, we can put her on Keppra. She should take seizure precautions and she cannot drive and she is willing to come to the office and she should go to her family doctor and if she come to our office, we will try to make an appointment with the neurosurgeon and may do some other workup including TIA workup and some cardiac workup to make sure there is no other contributing etiology. All of it was discussed with the family physician after the patient was seen. A total of more than 50 minutes of time was spent taking care of this patient today, majority was spent counseling, coordinating as well as reviewing her prior records. Thank you very much for this referral. By: [id number] [id number] Bubba Clayton MD /nt
[~2020-10-29 07:46] MED LIST changes: +LEVETIRACE100 MG/1 M PO
[2020-10-29 08:15] LABS: ANION GAP 7 mmol/L (7-16); BUN 25 mg/dL (7-18); CALCIUM 8.9 mg/dL (8.5-10.1); CHLORIDE 104 mmol/L (98-107); CO2 29 mmol/L (21-32); CREATININE 0.9 mg/dL (0.6-1.0); GLUCOSE 230 mg/dL (74-106); POTASSIUM 4.3 mmol/L (3.5-5.1); SODIUM 140 mmol/L (136-145)
[2020-10-29 08:21] LABS: ABSOLUTE NEUTROPHILS 2.3 thou/uL (1.4-8.2); BASOPHILS 0.6 % (0.0-2.0); EOSINOPHILS 4.1 % (0.0-3.0); HEMATOCRIT 36.2 % (37.0-47.0); LYMPHOCYTES 26.9 % (24.0-44.0); MCH 30.4 pg (26.0-34.0); MCHC 33.2 g/dL (28.0-37.0); MCV 91.7 fL (80.0-100.0); MONOCYTES 9.8 % (1.0-8.0); PLATELET COUNT 209 thou/uL (150-400); POLYS 58.6 % (36.0-66.0); RBC 3.94 mil/uL (4.20-5.00); RDW 13.6 % (10.5-14.5)
[2020-10-29 08:25] LABS: ALBUMIN 3.3 g/dL (3.4-5.0); SGOT 30 U/L (15-37); SGPT 24 U/L (30-65); TOTAL BILIRUBIN 0.9 mg/dL (0.2-1.0); TOTAL PROTEIN 6.3 g/dL (6.4-8.2); TROPONIN-I <0.06 ng/mL (<0.06)
[2020-10-29 09:36] LABS: URINE BILIRUBIN NEGATIVE (Negative); URINE BLOOD TRACE (Negative); URINE CLARITY CLEAR; URINE COLOR YELLOW; URINE GLUCOSE-RANDOM* 2+ (Negative); URINE KETONES TRACE (Negative); URINE LEUKOCYTES-REFLEX NEGATIVE (Negative); URINE NITRITE-REFLEX NEGATIVE (Negative); URINE PROTEIN (DIPSTICK) NEGATIVE (Negative); URINE UROBILINOGEN 0.2 E.U./dl (0.2-1.0)
[2020-10-29 09:45] LABS: AMP/METHAMP Negative (Negative); BARBITURATES Negative (Negative); BENZODIAZEPINES Negative (Negative); COCAINE Negative (Negative); METHADONE Negative (Negative); OPIATES Negative (Negative); PCP Negative (Negative)
[2020-10-29] MEDS ORDERED: KEPPRA 500 MG500 MG PO (11:17)
[2020-10-29 11:45] VITALS: BP 115/54
--- NOTE | 2020-10-30 06:58 | EKG ---
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: : 1940 Requested By: Hannah Wolfe Order Number: [id number] MD: Ed Ram Measurements Intervals Kermit Rate: 72 P: 70 GA: 167 QRS: -37 QRSD: 129 T: 93 QT: 449 QTc: 492 Interpretive Statements Sinus rhythm Left bundle branch block Compared to ECG 06/11/2020 04:38:34 Left bundle-branch block now present Atrial premature complex(es) no longer present ST (T wave) deviation no longer present Electronically Signed On 10-30-2020 6:58:14 BILLING AUDITOR by Ed Ram [email or web address] <ELECTRONICALLY SIGNED> By: Ed Ram MD, [facility] 10/30/20 0658 7 7 Ed Ram MD, FAC /EPI
== END 2020-10-29 11:45 | disposition left against medical advice (07) ==
LOC: ER 07:46
PROVIDERS: Emergency Medicine
DX: R41.82 Altered mental status, unspecified (principal); R56.9 Unspecified convulsions; E11.9 Type 2 diabetes mellitus without complications; Z79.899 Other long term (current) drug therapy; Z20.822 Contact with and (suspected) exposure to COVID-19

== ENCOUNTER 2021-04-09 10:11 | Emergency (ER) | payer OTHER, MEDICARE ==
[~2021-04-09] VITALS: Ht 152.4 cm; Wt 54.4 kg
[~2021-04-09 10:11] MED LIST changes: +KEPPRA 500 MG500 MG PO
[2021-04-09 13:29] VITALS: BP 164/69
== END 2021-04-09 13:29 | disposition home or self-care (01) ==
LOC: ER 10:11
DX: S16.1XXA Strain of muscle, fascia and tendon at neck level, initial encounter (principal); S40.011A Contusion of right shoulder, initial encounter; B37.3 Candidiasis of vulva and vagina; E11.9 Type 2 diabetes mellitus without complications; W18.39XA Other fall on same level, initial encounter; Y93.89 Activity, other specified; Y92.091 Bathroom in other non-institutional residence as the place of occurrence of the external cause; Y99.8 Other external cause status

== ENCOUNTER 2021-08-03 23:39 | Inpatient (IN) | payer OTHER, MEDICARE ==
[~2021-08-03] VITALS: Ht 154.9 cm; Wt 54.0 kg
--- NOTE | ~2021-08-03 | HC ---
[facility] [place] [address] CONSULTATION Name: DORIS MARTINS Room #: 216-P ADM IN M.R.#: [id number] Admission: 08/04/21 Attend Phys: Zeny Vargas MD Discharge: Date of : 42 Report #: [id number] THIS REPORT FOR: cc: Alysia Vences MD, Stany A. MD Khosla,Bubba Ballard MD ~ DATE OF SERVICE: 08/04/2021 HISTORY OF PRESENT ILLNESS: This is an 81-year-old female patient who was evaluated by me for the possibility of seizure. This patient has been admitted to this hospital in the past and I reviewed all those records. Some summary of this is given in nurse practitioners admission history and physical. This patient was admitted with altered mental status. She was hypoglycemic when it happens. It is very difficult to get a straight answer for this patient. When I asked her whether her blood sugar is controlled, she asked me whether I have ever tried to control my blood sugar. I told her that I have not done it, but some of my diabetic patients do it. She says it is impossible to control the blood sugar. I asked that she can talk to an reservoir engineer or an field adjuster in that regard about her option. She says that I know all my options and I do not want to discuss any options with them. Review of the prior record indicates from Dr. Grider's notes that she also has a lot of denial in other things also. I am not sure what can we do in these circumstances. She was recommended to take Keppra. When I asked her about she taking her Keppra, she said she was not because she does not need it. When I asked her when was the last time she took Keppra, she says a long time ago, but she does not remember. First, she said she never took Keppra. I asked does she know if she is taking Keppra here, she said she does not. REVIEW OF SYSTEMS: Positive for multiple episodes of hypoglycemia. In fact, the last time she was admitted, they did not know whether she has epilepsy or hypoglycemia related seizure. There is some history of dementia, but when I examined her, she does reasonably well. She tells me she does not drink alcohol. Positive for diabetes, which is very poorly controlled. It looks like the patient was seen in the Emergency Room by [facility]. They had recommended an MRI of the brain with and without contrast, which was done and I reviewed it. It shows some abnormality in the temporal lobe and the meningioma, both will predispose her for seizures. This was a relevant 14-point review of system. PAST MEDICAL HISTORY: Positive for what looks like seizures and hypoglycemia [address] [address] CONSULTATION Name: DORIS MARTINS Room #: 216-P [facility] IN M.R.#: [id number] Admission: 08/04/21 Attend Phys: Zeny Vargas MD Discharge: Date of : 42 Report #: [id number] and very poor compliance. FAMILY HISTORY: Unremarkable. SOCIAL HISTORY: She says she does not drink alcohol. PHYSICAL EXAMINATION: VITAL SIGNS: Blood pressure is low at 97/44, temperature is 97.9, pulse is 78, respirations 18. CARDIAC: Appear unremarkable. NEUROLOGIC: The patient's examination indicate she is alert. She can tell me what month it is. She can tell me what date it is. She knows who the president is. She know what hospital she is in. Her speech looks intact. She is not complaining of any pain to me. Cranial nerve and neuromuscular examination is unremarkable. She has a good position sense. Her reflexes are symmetrical. Tone is symmetrical. She is not ataxic. I could not look at the patient's fundus. She is a reasonably well-developed individual. LABORATORY DATA: White count is 8.1. Her GFR is 81. Blood sugar is fluctuating even here. 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 I strongly recommended that she needs to continue Keppra. She strongly believes she does not need that and she is not going to continue with Keppra. She is competent to make her decision. She understands that catastrophic complication, which can occur if she does not follow the medical advice, but at least tonight she has no intention of continuing Keppra as an outpatient and she will not let me do any further workup to rule out any other pathology including TIA or stroke. Those are less likely, but taking seizure precautions including not driving and taking other seizure precaution and continuing Keppra is paramount. She clearly told me she will not do that. I am not sure what I can do in these circumstances. I spent more than 50 minutes of time taking care of this patient, trying to educate her about importance of compliance and consequences of noncompliance, reviewing her extensive records and imaging studies. Thank you very much for this referral. By: [id number] Bubba Clayton MD /naye
--- NOTE | ~2021-08-03 | EMS ---
[address] [address] EMS Patient Care Report Name: DORIS MARTINS Room #: PRE MLeslie#: [id number] Admission: Attend Phys: Discharge: Date of : 42 Report #: [id number] THIS REPORT FOR: //name// Report Transmitted: 08/03/2021 23:09 EMS Care Summary [facility] MED-ACT Incident [id number] @ 08/03/2021 21:53 Incident Location [address] [place] [address] Patient DORIS MARTINS Female, 81 Years 1940 Patient Address [address] [place] [address] Patient History Type 1 Diabetes, Patient Allergies No known allergies, Patient Medications Insulin, Chief Complaint Hypoglycemia Disposition Transported No Lights/[place] Dispatch Reason Diabetic Problem Transported To [facility] Narrative Arrived to find pt lying on the floor alert but confused. stated the pt fell and was not acting right and that she was a diabetic. Pt's was assisted up and bG was checked and found to be 51. Pt was administered 20 gms of dextrose. Pt very slowly became more alert than when EMS made first [address] [address] EMS Patient Care Report Name: DORIS MARTINS Room #: PRE ER M.R.#: [id number] Admission: Attend Phys: Discharge: Date of : 42 Report #: [id number] contact, but continued to be confused about place and time. Pt could not recall the city she lived in or the current year. Pt also had repetitive questioning about what happened tonight. Pt was assisted to the cot and transported to [facility] ER and rested without change en route to the ER. Upon arrival to was taken to 1 a care transferred to housekeeping staff with report. Initial Vitals @22:08R: 20,BP: 144/67,Pain: 0/10,GCS: 13,Temp: 98F,Glucose: 51,Revised Trauma: 12, @23:28P: 90,R: 18,BP: 120/69,Pain: 0/10,GCS: 14,Temp: 96.1F,Glucose: 236,SpO2: 97,Revised Trauma: 12, Impression Diabetic Hypoglycemia Procedures @22:05 IV Therapy - Normal Saline (.9% NaCl) 10cc (20 ga) Site: Antecubital-Right Response: UnchangedSucceeded @22:06 Dextrose 10% - 200 Milliliters (ml) - Intravenous (IV) Response: Unchanged Timeline 21:51,Call Received 21:51,Psap Call 21:53,Dispatched 21:53,En Route 22:03,On Scene 22:05,At Patient 22:05,IV Therapy - Normal Saline (.9% NaCl) 10cc 20 ga Site: Antecubital-Right,Response: UnchangedSucceeded, 22:06,Dextrose 10% - 200 Milliliters (ml) - Intravenous (IV),Response: Unchanged 22:08,BP: 144/67 M,PULSE: ,RR: 20 R,SPO2: Ox,ETCO2: ,B,PAIN: 0,GCS: 13, 23:22,Depart Scene 23:28,BP: 120/69 M,PULSE: 90,RR: 18 R,SPO2: 97 Ox,ETCO2: ,B,PAIN: 0,GCS: 14, 23:31,At Destination 23:49,Call Closed Disclaimer v1.1 Copyright 2020 [employer] This EMS Care Summary contains data elements from the applicable legal record (which may be displayed differently). It is designed to provide pertinent information for the following purposes: continuity of care, clinical quality, and state data reporting. The complete legal record is available to ED staff [facility] [address] [place] [address] EMS Patient Care Report Name: LASKHMIDORIS Room #: PRE M.R.#: [id number] Admission: Attend Phys: Discharge: Date of : 42 Report #: [id number] and administrators of the receiving hospital in [facility]'s Patient Tracker. All data is provided "as is."
--- NOTE | ~2021-08-03 | EMS ---
[address] [address] EMS Patient Care Report Name: DORIS MARTINS Room #: PRE MLeslie#: [id number] Admission: Attend Phys: Discharge: Date of : 42 Report #: [id number] THIS REPORT FOR: //name// Report Transmitted: 08/03/2021 23:09 EMS Care Summary [facility] MED-ACT Incident [id number] @ 08/03/2021 21:53 Incident Location [address] [place] [address] Patient DORIS MARTINS Female, 81 Years 1940 Patient Address [address] [place] [address] Patient History Type 1 Diabetes, Patient Allergies No known allergies, Patient Medications Insulin, Chief Complaint Hypoglycemia Disposition Transported No Lights/[place] Dispatch Reason Diabetic Problem Transported To [facility] Narrative Arrived to find pt lying on the floor alert but confused. stated the pt fell and was not acting right and that she was a diabetic. Pt's was assisted up and bG was checked and found to be 51. Pt was administered 20 gms of dextrose. Pt very slowly became more alert than when EMS made first [address] [address] EMS Patient Care Report Name: DORIS MARTINS Room #: PRE ER M.R.#: [id number] Admission: Attend Phys: Discharge: Date of : 42 Report #: [id number] contact, but continued to be confused about place and time. Pt could not recall the city she lived in or the current year. Pt also had repetitive questioning about what happened tonight. Pt was assisted to the cot and transported to [facility] ER and rested without change en route to the ER. Upon arrival to was taken to 1 a care transferred to temporary staff accountant with report. Initial Vitals @22:08R: 20,BP: 144/67,Pain: 0/10,GCS: 13,Temp: 98F,Glucose: 51,Revised Trauma: 12, @23:28P: 90,R: 18,BP: 120/69,Pain: 0/10,GCS: 14,Temp: 96.1F,Glucose: 236,SpO2: 97,Revised Trauma: 12, Impression Diabetic Hypoglycemia Procedures @22:05 IV Therapy - Normal Saline (.9% NaCl) 10cc (20 ga) Site: Antecubital-Right Response: UnchangedSucceeded @22:06 Dextrose 10% - 200 Milliliters (ml) - Intravenous (IV) Response: Unchanged Timeline 21:51,Call Received 21:51,Psap Call 21:53,Dispatched 21:53,En Route 22:03,On Scene 22:05,At Patient 22:05,IV Therapy - Normal Saline (.9% NaCl) 10cc 20 ga Site: Antecubital-Right,Response: UnchangedSucceeded, 22:06,Dextrose 10% - 200 Milliliters (ml) - Intravenous (IV),Response: Unchanged 22:08,BP: 144/67 M,PULSE: ,RR: 20 R,SPO2: Ox,ETCO2: ,B,PAIN: 0,GCS: 13, 23:22,Depart Scene 23:28,BP: 120/69 M,PULSE: 90,RR: 18 R,SPO2: 97 Ox,ETCO2: ,B,PAIN: 0,GCS: 14, 23:31,At Destination 23:49,Call Closed Disclaimer v1.1 Copyright 2020 [employer] This EMS Care Summary contains data elements from the applicable legal record (which may be displayed differently). It is designed to provide pertinent information for the following purposes: continuity of care, clinical quality, and state data reporting. The complete legal record is available to ED staff [facility] [address] [place] [address] EMS Patient Care Report Name: LAKSHMIDORIS Room #: PRE M.R.#: [id number] Admission: Attend Phys: Discharge: Date of : 42 Report #: [id number] and administrators of the receiving hospital in [facility]'s Patient Tracker. All data is provided "as is."
--- NOTE | ~2021-08-03 | EEG ---
[facility] [place] [address] ELECTROENCEPHALOGRAM Name: DORIS MARTINS Room #: 216-P [facility] IN M.R.#: [id number] Admission: 08/04/21 Attend Phys: Nic Flood MD Discharge: Date of : 42 Report #: [id number] THIS REPORT FOR: //name// DATE OF SERVICE: 08/04/2021 This patient is being evaluated for the possibility of seizures. EEG was done by placing the electrodes by standard 10-20 system of electrode placement. Both referential and sequential montages were used for recording. Background activity in this patient's EEG is about 11 Hz and 15 microvolt. The patient went to sleep and that is associated with bilateral slowing and vertex sharp waves. Throughout the record, no active epileptiform activity was noticed. IMPRESSION: This patient's EEG is unremarkable. Thank you very much for this referral. By: [id number] Bubba Clayton MD /nt
[2021-08-03 23:41] VITALS: BP 132/57
[2021-08-04 00:20] LABS: ABSOLUTE NEUTROPHILS 6.5 thou/uL (1.4-8.2); BASOPHILS 0.4 % (0.0-2.0); EOSINOPHILS 1.5 % (0.0-3.0); HEMATOCRIT 36.4 % (37.0-47.0); LYMPHOCYTES 9.8 % (24.0-44.0); MCH 30.2 pg (26.0-34.0); MCHC 32.9 g/dL (28.0-37.0); MCV 91.8 fL (80.0-100.0); MONOCYTES 8.1 % (1.0-8.0); PLATELET COUNT 241 thou/uL (150-400); POLYS 80.2 % (36.0-66.0); RBC 3.97 mil/uL (4.20-5.00); RDW 13.4 % (10.5-14.5); WBC 8.1 thou/uL (4.0-11.0)
[2021-08-04 00:22] LABS: CALCIUM 8.7 mg/dL (8.5-10.1); CREATININE 0.9 mg/dL (0.6-1.0); POTASSIUM 3.7 mmol/L (3.5-5.1)
[2021-08-04] MEDS ORDERED: LEVEMIR100 UNIT/1 SUBQ (00:28)
[2021-08-04] MEDS ORDERED: HUMALOG100 UNIT/1 SUBQ (00:28)
[2021-08-04 00:32] LABS: ALBUMIN 3.4 g/dL (3.4-5.0); TOTAL BILIRUBIN 0.6 mg/dL (0.2-1.0); TOTAL PROTEIN 6.3 g/dL (6.4-8.2)
[2021-08-04 00:52] LABS: URINE BILIRUBIN NEGATIVE (Negative); URINE BLOOD 2+ (Negative); URINE CLARITY CLEAR; URINE COLOR YELLOW; URINE GLUCOSE-RANDOM* 2+ (Negative); URINE KETONES NEGATIVE (Negative); URINE LEUKOCYTES-REFLEX NEGATIVE (Negative); URINE NITRITE-REFLEX NEGATIVE (Negative); URINE PROTEIN (DIPSTICK) NEGATIVE (Negative); URINE SPECIFIC GRAVITY 1.025 (1.005-1.035); URINE UROBILINOGEN 0.2 E.U./dl (0.2-1.0)
[2021-08-04 00:53] LABS: APTT 24.3 Seconds (24.5-32.8); INR 1.04; PROTIME 11.3 Seconds (10.5-12.1)
[2021-08-04 01:02] LABS: ALBUMIN 3.3 g/dL (3.4-5.0); CALCIUM 8.6 mg/dL (8.5-10.1); CREATININE 0.7 mg/dL (0.6-1.0); POTASSIUM 3.4 mmol/L (3.5-5.1); TOTAL BILIRUBIN 0.7 mg/dL (0.2-1.0); TOTAL PROTEIN 6.1 g/dL (6.4-8.2)
[2021-08-04 01:19] LABS: SQUAMOUS 0-3 Few /LPF (0-3)
[2021-08-04 01:20] LABS: BACTERIA-REFLEX 1-9 Few /HPF (None Seen); CASTS None Seen /LPF (None Seen); CRYSTALS None Seen /LPF (None Seen); MUCUS 0-3 Light strn/LPF (None Seen); URINE WBC-REFLEX 0-5 Rare /HPF (0-5)
[2021-08-04 06:54] VITALS: BP 121/47
[2021-08-04 07:26] VITALS: BP 106/44
[2021-08-04 12:00] VITALS: BP 116/50
--- NOTE | 2021-08-04 15:07 | NUR ---
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 THE PATIENT WAS A/O X4, IN GOOD PHYSICAL CONDITION. THE PATIENT DENIES HAVING HAD A SEIZURE AND IS DISGRUNTLED ABOUT HAVING TO STAY IN THE HOSPITAL, STATING, "YOU GUYS ARE REALLY MESSING UP MY ROUTINE. I HAVE A STRICT ROUTINE I STICK TO AND I NEED TO GO HOME. I HAVE TO WORKOUT." THE PATIENT WAS THERAPEUTICALLY EDUCATED ON THE IMPORTANCE OF HER HOSPITAL STAY AND THE PLAN FOR HER CARE HERE.
[2021-08-04 16:00] VITALS: BP 97/44
--- NOTE | 2021-08-04 17:12 | NUR ---
Case discussed with the care team and cm assessment completed at bedside. The pt a&ox3. She notes her sign other Damon who lives with her just left to go home for the evening. She indicates that she is indep with all gait and adl's and works out at a gym several times a week. She drives and manages her own medications and does not need her sign other for any assistance. She does not believe she had a seizure and feels is was due to too much insulin that her blood sugars dropped. She has been an IDDM since childhood. She is covid negative and has had the J&J vaccine last Spring. She has one step to enter her home and 12 down to the basement. She denies any concerns about her memory or function in the home. She has no dme or hh and indicates she is hoping to go home tomorrow with no needs. ST eduardo jacobs noted. PT/OT evals pending. Will follow along and await the care team recommendations. The pt's pcp is Dr. Almazan. She did not wish to add her sons to the spokesperons list as she is updating them herself. Will follow.
[2021-08-04 19:21] VITALS: BP 119/47
--- NOTE | 2021-08-05 04:51 | NUR ---
PATIENT IS AAOX3 RESTINGIN HER ROOM. PATIENT STATES THAT SHE DOES NOT NEED TO BE HERE AND THAT THERE IS NOTHING WRONG WITH HER. SHE STATES THAT SHE DOES NOT HAVE ANY ISSUES WITH SEIZURES AND STATES THAT SHE ACCIDENTALLY GAVE HERSELF TOO MUCH INSULIN. STATES THAT IS WHY SHE PASSED OUT. PATIENT GLUSOCE LEVEL AT HS TIME WAS 64. GAVE PATIENT SANJEEV CRACKERS AND OJ WHICH SHE INITIALLY REFUSED. STATED THAT SHE HAD ATE WELL AT DINNER. INFORMED PATIENT THAT DINNER WAS OVER 5 HOURS AGO AND THAT FOR SAFETY SHE SHOULD ACCEPT THE SNACK. PATIENT DECIDED TO TAKE THE SNACK. SHE ALSO INITIAKKY REFUSED A RECHECK OF HER SUGAR STATING THAT SHE GUARANTEED THAT IT WOULD GO BACK UP. INFORMED PATIENT THAT WE SHOULD SHOW A RECORD OF HER SUGARS SO HER PROVIDR CAN REVIEW THEM. AFTER RECHECK HER SUGAR WAS 171. DURING THE SHIFT BED ALARM WENT OFF ON MULTIPLE OCCASSIONS SHE REFUSES TO USE THE CALL BUTTON FOR ASSISTANCE. PATIENT ALSO REFUSED TO WEAR NON SKID SOCKS. ALL OF HER VITALS WERE WNL. SHE DENIES ANY PAIN OR OTHER NEEDS. WILL CONTINUE TO MONITOR FOR CHANGES IN PATIENT STATUS.
[2021-08-05 05:01] VITALS: BP 121/54
--- NOTE | 2021-08-05 07:13 | EKG ---
[address] [place] [address] ELECTROCARDIOGRAM REPORT Name: DORIS MARTINS Room #: 216-P ADM IN M.R.#: [id number] Admission: 08/04/21 Attend Phys: Nic Flood MD Discharge: Date of : 42 Report #: [id number] [facility] ED Test Date: 2021-08-04 Test Time: 00:21:08 Pat Name: DORIS MARTINS Department: Room: 216 Gender: F Pediatric Clinical Dietician: : 1940 Requested By: Grady Wade Order Number: [id number] MD: Ed Ram Measurements Intervals [place] Rate: 80 P: 76 KS: 188 QRS: -40 QRSD: 124 T: 86 QT: 413 QTc: 477 Interpretive Statements Sinus rhythm Left atrial enlargement Left bundle branch block Compared to ECG 10/29/2020 08:18:45 Atrial abnormality now present Electronically Signed On 08-05-2021 7:13:32 PLANETARIUM TECHNICIAN by Ed Ram [email or web address] <ELECTRONICALLY SIGNED> By: Ed Ram MD, [facility] 08/05/21 0713 002 0021 Ed Ram MD, FACC /EPI
[2021-08-05 08:52] VITALS: BP 123/51
[2021-08-05 08:53] VITALS: BP 139/56
--- NOTE | 2021-08-05 12:58 | NUR ---
PT IS INSITITING ON GOING HOME. NURSE INFROMED HOSPITALIST. HOSPITALIST INFORMED NURSE THAT IN ORDER TO LEAVE AMA OR BE DISCHARGED THE PT MUST SEE NUROLOGY AND PSYCH. PT AND SIGNIFICANT OTHER BECAME VERY AGITATED. NURSE INFORMED SECURITY THAT CAME TO ASSIST WITH THE SITUATION. PT AND SIGNIFICANT OTHER AGREED TO GO INTO THR PT ROOM. NURSE CONTINUOUSLY HAS TO REMIND PT TO REMAIN IN ROOM. WILL CONTINUE TO MONITOR.
[2021-08-05] MEDS ORDERED: ACETAMINOPHEN325 M1 PO (14:41)
[2021-08-05] MEDS ORDERED: KEPPRA 500 MG500 M1 PO (14:41)
[2021-08-05] MEDS ORDERED: MIRALAX17 GM PO (14:41)
[2021-08-05 14:44] VITALS: BP 123/51
--- NOTE | 2021-08-05 15:22 | NUR ---
PT DISCHARGED HOME AT 1515. PT TOOK ALL BELONGINGS HOME. PT GIVEN GISCHARGE INFROMATION.
--- NOTE | 2021-08-05 16:48 | NUR ---
Patient cont to try to leave AMA. Dr Honeycutt consulted and met with patient. Patient has basic capacity for seizures. Dr Honeycutt sp with son who lives in [place] [facility] [phone]. He reports to Dr Honeycutt patient often leaves AMA at hospitals. he feels she can care for her medical care but concern for driving and possible seizures. He reports to sp with sister. She lives in [facility] and [place] at times. Casmgt sp with sister. she reports she is aware her mother goes to different hospitals and leaves AMA. Their is no consistancy with care. She reports she was unaware of seizures with her mother. RN gave medical report. She does not have PCP per dtr. Mentioned Dr Vences listed and she reports does not see him. Inquired if made an apt with PCP in area and requested s/o take her, dtr reports she would not go to apt. She reports s/o of 35 years will do whatever patient wants to do. If not go places etc. Concern with driving. Rn with dc instruct to inform no driving. Casemgt hotlined patient to [facility]. rec "letter of concern" from DMV plan completion.
== END 2021-08-05 15:23 | disposition home health service (06) | DRG 100 ==
LOC: ER 23:39 → 2N 08-04 01:55 → EROBS 08-04 01:55 → 2N 08-04 10:27
PROVIDERS: Emergency Medicine; ADMIT Internal Medicine; ATTEND Internal Medicine
DX: G40.409 Other generalized epilepsy and epileptic syndromes, not intractable, without status epilepticus (principal); G93.41 Metabolic encephalopathy; E11.649 Type 2 diabetes mellitus with hypoglycemia without coma; D32.0 Benign neoplasm of cerebral meninges; Z20.822 Contact with and (suspected) exposure to COVID-19; I10 Essential (primary) hypertension; R53.81 Other malaise; Z79.4 Long term (current) use of insulin
CPT/HCPCS: 10081

== ENCOUNTER 2021-09-26 00:49 | Inpatient (IN) | payer OTHER, MEDICARE ==
[~2021-09-26] VITALS: Ht 157.5 cm; Wt 53.3 kg
[2021-09-26] VITALS (7 sets, daily range): BP systolic 97–127; BP diastolic 45–59
--- NOTE | ~2021-09-26 | EMS ---
[address] [address] EMS Patient Care Report Name: DORIS MARTINS Room #: 212-P ADM IN M.R.#: [id number] Admission: 09/26/21 Attend Phys: Mina Steel MD Discharge: Date of : 42 Report #: [id number] THIS REPORT FOR: //name// Report Transmitted: 09/26/2021 06:56 EMS Care Summary [facility] MED-ACT Incident [id number] @ 09/26/2021 00:13 Incident Location [address] [place] [address] Patient DORIS MARTINS Female, 81 Years 1940 Patient Address [address] [place] [address] Patient History Diabetes, Patient Allergies No known allergies, Patient Medications None Reported, Chief Complaint Altered mental status Disposition Transported Lights/[place] Dispatch Reason Unconscious/Fainting Transported To [facility] Narrative Pt found lying supine on the living room floor with no obvious signs of trauma. Pt's reports she was reading in the chair when I got to use the restroom I heard her fall. I cam into the living room and found her on the floor. She is a diabetic so her blood sugar is low this has happened before. [address] [address] EMS Patient Care Report Name: DORIS MARTINS Room #: 212-P ADM IN Amaris#: [id number] Admission: 09/26/21 Attend Phys: Mina Steel MD Discharge: Date of : 42 Report #: [id number] EMS preformed an initial exam and found her blood sugar was 120. Pt showed signs of possible stroke she would respond with non nonsensical words and gibberish. This information was shared with the he was adamant that she not be transported because it was just a low blood sugar and she was fine. EMS preformed a 2nd blood check and showed the the reading on the meter. Pt stated "I will take full responsibility do not take her to the hospital she will be mad that she was transported." EMS firmly explained that this was not a diabetic issue and that she was confused there using implied consent that she would be transported to the closest stroke center. Pt was lifted to ambulance cot and secured with seat belts. Pt was covered with blankets for warmth and moved to the ambulance without incident. Pt was transported in position of comfort to closest hospital. EMS alerted [facility] on [employer] system KINDER TEACHER. Pt was deliver to ER bed 8 with repetitive questions for a drink of water but her speech was clear. Pt was lifted to ER bed via 4 person sheet lift and secured with locked side rails in the upright position. Lead mechanical shop laborer gave report to receiving RN transferring pt and care to hospital staff. Initial Vitals @00:25P: 108,SpO2: 94,MA Suspected: false @00:37P: 115,MA Suspected: false @00:44P: 78,MA Suspected: false @00:28P: 114,R: 16,BP: 129/50,Pain: 0/10,GCS: 13,Temp: 98.6F,Glucose: 110,SpO2: 99,Revised Trauma: 12, @00:38P: 60,R: 18,BP: 114/52,Pain: 0/10,GCS: 14,SpO2: 98,Revised Trauma: 12, Impression Stroke Procedures @00:32 IV Therapy - Saline Lock 10cc (20 ga) Site: Antecubital-Right Response: UnchangedSucceeded @00:37 12-Lead ECG Response: UnchangedSucceeded Timeline 00:12,Call Received 00:12,Psap Call 00:13,Dispatched 00:13,En Route 00:20,On Scene 00:21,At Patient 00:25,BP: / M,PULSE: 108,RR: R,SPO2: 94 Ox,ETCO2: ,BG: ,PAIN: ,GCS: , 00:28,BP: 129/50 M,PULSE: 114,RR: 16 R,SPO2: 99 Ox,ETCO2: ,B,PAIN: [address] [address] EMS Patient Care Report Name: LAKSHMIDORIS Room #: 212-P ADM IN M.R.#: [id number] Admission: 09/26/21 Attend Phys: Mina Steel MD Discharge: Date of : 42 Report #: [id number] 0,GCS: 13, 00:32,IV Therapy - Saline Lock 10cc 20 ga Site: Antecubital-Right,Response: UnchangedSucceeded, 00:35,Depart Scene 00:37,12-Lead ECG,Response: UnchangedSucceeded, 00:37,BP: / M,PULSE: 115,RR: R,SPO2: Ox,ETCO2: ,BG: ,PAIN: ,GCS: , 00:38,BP: 114/52 M,PULSE: 60,RR: 18 R,SPO2: 98 Ox,ETCO2: ,BG: ,PAIN: 0,GCS: 14, 00:44,BP: / M,PULSE: 78,RR: R,SPO2: Ox,ETCO2: ,BG: ,PAIN: ,GCS: , 00:45,At Destination 01:18,Call Closed Disclaimer v1.1 Copyright 2021 [employer] This EMS Care Summary contains data elements from the applicable legal record (which may be displayed differently). It is designed to provide pertinent information for the following purposes: continuity of care, clinical quality, and state data reporting. The complete legal record is available to ED staff and administrators of the receiving hospital in [employer]'s Patient Tracker. All data is provided "as is."
--- NOTE | ~2021-09-26 | EMS ---
[address] [address] EMS Patient Care Report Name: DORIS MARTINS Room #: 212-P [facility] IN M.R.#: [id number] Admission: 09/26/21 Attend Phys: Mina Steel MD Discharge: 09/29/21 Date of : 42 Report #: [id number] THIS REPORT FOR: //name// Report Transmitted: 10/12/2021 12:05 EMS Care Summary [facility] MED-ACT Incident [id number] @ 09/26/2021 00:13 Incident Location [address] [place] [address] Patient DORIS MARTINS Female, 81 Years 1940 Patient Address [address] [place] [address] Patient History Diabetes, Patient Allergies No known allergies, Patient Medications None Reported, Chief Complaint Altered mental status Disposition Transported Lights/[place] Dispatch Reason Unconscious/Fainting Transported To [facility] Narrative Pt found lying supine on the living room floor with no obvious signs of trauma. Pt's reports she was reading in the chair when I got to use the restroom I heard her fall. I cam into the living room and found her on the floor. She is a diabetic so her blood sugar is low this has happened before. [address] [address] EMS Patient Care Report Name: DORIS MARTINS Room #: 212-P DIS IN .Usha.#: [id number] Admission: 09/26/21 Attend Phys: Mina Steel MD Discharge: 09/29/21 Date of : 42 Report #: [id number] EMS preformed an initial exam and found her blood sugar was 120. Pt showed signs of possible stroke she would respond with non nonsensical words and gibberish. This information was shared with the he was adamant that she not be transported because it was just a low blood sugar and she was fine. EMS preformed a 2nd blood check and showed the the reading on the meter. Pt stated "I will take full responsibility do not take her to the hospital she will be mad that she was transported." EMS firmly explained that this was not a diabetic issue and that she was confused there using implied consent that she would be transported to the closest stroke center. Pt was lifted to ambulance cot and secured with seat belts. Pt was covered with blankets for warmth and moved to the ambulance without incident. Pt was transported in position of comfort to closest hospital. EMS alerted [facility] on [employer] system BULL CHAIN OPERATOR. Pt was deliver to ER bed 8 with repetitive questions for a drink of water but her speech was clear. Pt was lifted to ER bed via 4 person sheet lift and secured with locked side rails in the upright position. Lead cleaner window gave report to receiving RN transferring pt and care to hospital staff. Initial Vitals @00:25P: 108,SpO2: 94,DE Suspected: false @00:37P: 115,DE Suspected: false @00:44P: 78,DE Suspected: false @00:28P: 114,R: 16,BP: 129/50,Pain: 0/10,GCS: 13,Temp: 98.6F,Glucose: 110,SpO2: 99,Revised Trauma: 12, @00:38P: 60,R: 18,BP: 114/52,Pain: 0/10,GCS: 14,SpO2: 98,Revised Trauma: 12, Impression Stroke Procedures @00:32 IV Therapy - Saline Lock 10cc (20 ga) Site: Antecubital-Right Response: UnchangedSucceeded @00:37 12-Lead ECG Response: UnchangedSucceeded Timeline 00:12,Call Received 00:12,Psap Call 00:13,Dispatched 00:13,En Route 00:20,On Scene 00:21,At Patient 00:25,BP: / M,PULSE: 108,RR: R,SPO2: 94 Ox,ETCO2: ,BG: ,PAIN: ,GCS: , 00:28,BP: 129/50 M,PULSE: 114,RR: 16 R,SPO2: 99 Ox,ETCO2: ,B,PAIN: [address] [address] EMS Patient Care Report Name: LAKSHMIDORIS Room #: 212-P [facility] IN M.R.#: [id number] Admission: 09/26/21 Attend Phys: Mina Steel MD Discharge: 09/29/21 Date of : 42 Report #: [id number] 0,GCS: 13, 00:32,IV Therapy - Saline Lock 10cc 20 ga Site: Antecubital-Right,Response: UnchangedSucceeded, 00:35,Depart Scene 00:37,12-Lead ECG,Response: UnchangedSucceeded, 00:37,BP: / M,PULSE: 115,RR: R,SPO2: Ox,ETCO2: ,BG: ,PAIN: ,GCS: , 00:38,BP: 114/52 M,PULSE: 60,RR: 18 R,SPO2: 98 Ox,ETCO2: ,BG: ,PAIN: 0,GCS: 14, 00:44,BP: / M,PULSE: 78,RR: R,SPO2: Ox,ETCO2: ,BG: ,PAIN: ,GCS: , 00:45,At Destination 01:18,Call Closed Disclaimer v1.1 Copyright 2021 [employer] This EMS Care Summary contains data elements from the applicable legal record (which may be displayed differently). It is designed to provide pertinent information for the following purposes: continuity of care, clinical quality, and state data reporting. The complete legal record is available to ED staff and administrators of the receiving hospital in [employer]'s Patient Tracker. All data is provided "as is."
--- NOTE | ~2021-09-26 | EMS ---
[address] [address] EMS Patient Care Report Name: DORIS MARTINS Room #: 212-P ADM IN M.R.#: [id number] Admission: 09/26/21 Attend Phys: Mina Steel MD Discharge: Date of : 42 Report #: [id number] THIS REPORT FOR: //name// Report Transmitted: 09/26/2021 08:00 EMS Care Summary General Acute Hospital MED-ACT Incident [id number] @ 09/26/2021 00:13 Incident Location [address] [place] [id number] Patient DORIS MARTINS Female, 81 Years 1940 Patient Address [address] [place] [address] Patient History Diabetes, Patient Allergies No known allergies, Patient Medications None Reported, Chief Complaint Altered mental status Disposition Transported Lights/Huger Dispatch Reason Unconscious/Fainting Transported To [facility] Narrative Pt found lying supine on the living room floor with no obvious signs of trauma. Pt's reports she was reading in the chair when I got to use the restroom I heard her fall. I cam into the living room and found her on the floor. She is a diabetic so her blood sugar is low this has happened before. [address] [address] EMS Patient Care Report Name: DORIS MARTINS Room #: 212-P ADM IN Amaris#: [id number] Admission: 09/26/21 Attend Phys: Mina Steel MD Discharge: Date of : 42 Report #: [id number] EMS preformed an initial exam and found her blood sugar was 120. Pt showed signs of possible stroke she would respond with non nonsensical words and gibberish. This information was shared with the he was adamant that she not be transported because it was just a low blood sugar and she was fine. EMS preformed a 2nd blood check and showed the the reading on the meter. Pt stated "I will take full responsibility do not take her to the hospital she will be mad that she was transported." EMS firmly explained that this was not a diabetic issue and that she was confused there using implied consent that she would be transported to the closest stroke center. Pt was lifted to ambulance cot and secured with seat belts. Pt was covered with blankets for warmth and moved to the ambulance without incident. Pt was transported in position of comfort to closest hospital. EMS alerted [facility] on [employer] system SPECIAL INSPECTOR. Pt was deliver to ER bed 8 with repetitive questions for a drink of water but her speech was clear. Pt was lifted to ER bed via 4 person sheet lift and secured with locked side rails in the upright position. Lead grocery store clerk gave report to receiving RN transferring pt and care to hospital staff. Initial Vitals @00:25P: 108,SpO2: 94,[place] Suspected: false @00:37P: 115,[place] Suspected: false @00:44P: 78,[place] Suspected: false @00:28P: 114,R: 16,BP: 129/50,Pain: 0/10,GCS: 13,Temp: 98.6F,Glucose: 110,SpO2: 99,Revised Trauma: 12, @00:38P: 60,R: 18,BP: 114/52,Pain: 0/10,GCS: 14,SpO2: 98,Revised Trauma: 12, Impression Stroke Procedures @00:32 IV Therapy - Saline Lock 10cc (20 ga) Site: Antecubital-Right Response: UnchangedSucceeded @00:37 12-Lead ECG Response: UnchangedSucceeded Timeline 00:12,Call Received 00:12,Psap Call 00:13,Dispatched 00:13,En Route 00:20,On Scene 00:21,At Patient 00:25,BP: / M,PULSE: 108,RR: R,SPO2: 94 Ox,ETCO2: ,BG: ,PAIN: ,GCS: , 00:28,BP: 129/50 M,PULSE: 114,RR: 16 R,SPO2: 99 Ox,ETCO2: ,B,PAIN: [address] [address] EMS Patient Care Report Name: LAKSHMIDORIS Room #: 212-P ADM IN M.R.#: [id number] Admission: 09/26/21 Attend Phys: Mina Steel MD Discharge: Date of : 42 Report #: [id number] 0,GCS: 13, 00:32,IV Therapy - Saline Lock 10cc 20 ga Site: Antecubital-Right,Response: UnchangedSucceeded, 00:35,Depart Scene 00:37,12-Lead ECG,Response: UnchangedSucceeded, 00:37,BP: / M,PULSE: 115,RR: R,SPO2: Ox,ETCO2: ,BG: ,PAIN: ,GCS: , 00:38,BP: 114/52 M,PULSE: 60,RR: 18 R,SPO2: 98 Ox,ETCO2: ,BG: ,PAIN: 0,GCS: 14, 00:44,BP: / M,PULSE: 78,RR: R,SPO2: Ox,ETCO2: ,BG: ,PAIN: ,GCS: , 00:45,At Destination 01:18,Call Closed Disclaimer v1.1 Copyright 2021 [employer] This EMS Care Summary contains data elements from the applicable legal record (which may be displayed differently). It is designed to provide pertinent information for the following purposes: continuity of care, clinical quality, and state data reporting. The complete legal record is available to ED staff and administrators of the receiving hospital in [employer]'s Patient Tracker. All data is provided "as is."
[~2021-09-26 00:49] MED LIST changes: +ACETAMINOPHEN325 M1 PO; +HUMALOG100 UNIT/1 SUBQ; +KEPPRA 500 MG500 M1 PO; +MIRALAX17 GM PO
[2021-09-26 01:09] LABS: ABSOLUTE NEUTROPHILS 3.8 thou/uL (1.4-8.2); BASOPHILS 0.5 % (0.0-2.0); HEMATOCRIT 36.1 % (37.0-47.0); HEMOGLOBIN 11.8 gm/dL (12.0-15.0); LYMPHOCYTES 28.1 % (24.0-44.0); MCH 29.8 pg (26.0-34.0); MCHC 32.8 g/dL (28.0-37.0); MCV 90.7 fL (80.0-100.0); MONOCYTES 10.9 % (1.0-8.0); PLATELET COUNT 244 thou/uL (150-400); POLYS 59.5 % (36.0-66.0); RBC 3.98 mil/uL (4.20-5.00); RDW 13.4 % (10.5-14.5); WBC 6.4 thou/uL (4.0-11.0)
[2021-09-26 01:18] LABS: CREATININE 0.9 mg/dL (0.6-1.0); POTASSIUM 3.5 mmol/L (3.5-5.1)
[2021-09-26 01:23] LABS: ALBUMIN 3.8 g/dL (3.4-5.0); TOTAL BILIRUBIN 0.8 mg/dL (0.2-1.0); TOTAL PROTEIN 6.3 g/dL (6.4-8.2)
[2021-09-26 01:24] LABS: APTT 24.3 Seconds (24.5-32.8); INR 1.05; PROTIME 11.4 Seconds (10.5-12.1)
--- NOTE | 2021-09-26 02:36 | NUR ---
ASSISTED PT TO BEDSIDE COMMODE, PT WAS ABLE TO STAND WITH MINIMAL ASSIST.
[2021-09-26 02:48] LABS: URINE BILIRUBIN NEGATIVE (Negative); URINE BLOOD NEGATIVE (Negative); URINE CLARITY CLEAR; URINE COLOR YELLOW; URINE GLUCOSE-RANDOM* NEGATIVE (Negative); URINE KETONES NEGATIVE (Negative); URINE LEUKOCYTES-REFLEX NEGATIVE (Negative); URINE NITRITE-REFLEX NEGATIVE (Negative); URINE PROTEIN (DIPSTICK) NEGATIVE (Negative); URINE SPECIFIC GRAVITY 1.015 (1.005-1.035); URINE UROBILINOGEN 0.2 E.U./dl (0.2-1.0)
--- NOTE | 2021-09-26 05:24 | NUR ---
REPORT TO RECEIVING NURSE
[2021-09-26 06:25] LABS: CHOLESTEROL 170 mg/dL (<200); HDL CHOLESTEROL 98 mg/dL (>40); LDL CHOLESTEROL 64 mg/dL (<100); TC:HDL 1.7 Ratio (Not establshd); TRIGLYCERIDE 43 mg/dL (<150); VLDL 9 mg/dL (<40)
[2021-09-26 06:26] LABS: SERUM ASSESSMENT Clear
--- NOTE | 2021-09-26 07:44 | NUR ---
Pt was an ER admit who is alert and confused. Pt is a poor historian who is unable to provide information for admission. RN spoke to daughter and she was able to provide relevant information. Assessment completed and documented. Denies pain. No acute event noted. Continue to monitor
[2021-09-27 03:05] LABS: GLYCOHEMOGLOBIN (HGB A1C) 7.1 % (4.8-5.6)
[2021-09-27 05:14] VITALS: BP 116/53
--- NOTE | 2021-09-27 07:43 | NUR ---
PTS, BG DROPPED TO 23 AFTER GIVEN 3U FOR BLOOD GLUCOSE OF 200, TREATED AND BG BACK UP TO 135, VSS, NO C/O PAIN, IV FLUIDS INFUSING, PT UP TO BR KENN THIS AM, DAUGHTER CALLED AND UPDATED ON PTS PROGRESS, GAVE FAX NUMBER TO HAVE HER TRAIN SYSTEM OPERATOR FAX DPOA PAPER WORK, WILL CON'T TO MONITOR PER PPOC.
[2021-09-27 08:29] VITALS: BP 114/48
[2021-09-27 09:35] LABS: HEMATOCRIT 34.4 % (37.0-47.0); HEMOGLOBIN 11.3 gm/dL (12.0-15.0); MCH 30.1 pg (26.0-34.0); MCHC 32.8 g/dL (28.0-37.0); MCV 91.7 fL (80.0-100.0); RBC 3.75 mil/uL (4.20-5.00); RDW 14.2 % (10.5-14.5)
[2021-09-27 09:51] LABS: CALCIUM 8.6 mg/dL (8.5-10.1); CREATININE 0.8 mg/dL (0.6-1.0); MAGNESIUM 1.8 mg/dL (1.8-2.4); TOTAL BILIRUBIN 1.6 mg/dL (0.2-1.0); TOTAL PROTEIN 5.7 g/dL (6.4-8.2)
[2021-09-27 12:17] VITALS: BP 111/57
--- NOTE | 2021-09-27 12:55 | EKG ---
[address] [place] [address] ELECTROCARDIOGRAM REPORT Name: DORIS MARTINS Room #: 212-P ADM IN M.R.#: [id number] Admission: 09/26/21 Attend Phys: Mina Steel MD Discharge: Date of : 42 Report #: [id number] [facility] ED Test Date: 2021-09-26 Test Time: 00:55:33 Pat Name: DORIS MARTINS Department: Room: 212 Gender: F Silver Plater: : 1940 Requested By: Kim Brady Order Number: [id number] : Ed Ram Measurements Intervals [place] Rate: 124 P: NE: QRS: -48 QRSD: 131 T: 107 QT: 358 QTc: 515 Interpretive Statements Atrial fibrillation Left bundle branch block Baseline wander in lead(s) I,aVR Compared to ECG 08/04/2021 00:21:08 Sinus rhythm no longer present Atrial abnormality no longer present Electronically Signed On 09-27-2021 12:55:26 VICE PRESIDENT OF SOFTWARE ENGINEERING by Ed Ram [email or web address] <ELECTRONICALLY SIGNED> By: Ed Ram MD, [facility] 09/27/21 6254 0055 0055 Ed Ram MD, [facility] /EPI
--- NOTE | 2021-09-27 14:47 | NUR ---
I have reviewed the documentation by SINDHU WALKER from 09/27/21 to 09/27/21 and I concur with it. LAM PRICE, PT, DPT
[2021-09-27 16:00] VITALS: BP 124/63
--- NOTE | 2021-09-27 16:17 | NUR ---
CHART REVIEWED AND DISCUSSED WITH CARE TEAM. PTS DPOA IS AMANDA SMITH. NURSING INDICATED AMANDA IS CONFUSED, WALKING AROUND THE HALLS, AND REPORTING HE CANNOT FIND HIS CAR TO LEAVE. NURSING HAS REDIRECTED PT TWICE AND BOTH TIMES HAS COME BACK TO UNIT CONFUSED. DR BAIRES DEEMED NOT CAPABLE OF MAKING OWN DECISIONS. PTS DPOA UNABLE TO MAKE DECISIONS. CM DID NOT SPEAK WITH PTS DAUGHTER MARTINA MARTINS AND IN CONTACT WITH PTS SON. DAUGHTER IS CURRENTLY TRYING TO OBTAIN RECORDS FROM [facility]. AWAITING CONSULT FROM DR GUILLEN. CM FOLLOWING FOR FURTHER DC PLANNING.
--- NOTE | 2021-09-27 18:40 | NUR ---
ASSUMED PT CARE THIS MORNING. PT A&OX1 (SELF) AND IS NON-COOPERATIVE. PT NEEDED TO BE EDUCATED AND ENCOURAGED TO TAKE AM MEDICATION AND INSULIN THROUGHOUT THE SHIFT. PT ATTEMPTED TO REMOVE TELE AND THEIR IV MULTIPLE TIMES THIS SHIFT. PT IS IMPULSIVE AND WOULD JUMP OUT OF BED TO USE THE BATHROOM. PT WAS ASKED TO CALL STAFF FOR ASSISTANCE GOING TO THE BATHROOM. 3 BEDRAILS, BED ALARM, AND FREQUENT PT ROUNDING WERE UTALIZED TO KEEP PT SAFE. DPOA WAS COMMUNICATED WITH THROUGHOUT THE SHIFT BY THIS STAFF MEMBER AND DOCTORS. PT WAS EVENTUALLY COMPLIANT WITH PROVIDER ORDERED TESTS AND SCANS.
[2021-09-27 19:56] VITALS: BP 119/57
--- NOTE | 2021-09-27 21:03 | HC ---
[facility] [place] [address] CONSULTATION Name: DORIS MARTINS Room #: 212-P ADM IN M.R.#: [id number] Admission: 09/26/21 Attend Phys: Mina Steel MD Discharge: Date of : 42 Report #: [id number] THIS REPORT FOR: cc: Alysia Vences MD, Stany A. MD Kerstein, Andrew H. DO ~ DATE OF SERVICE: 09/26/2021 INPATIENT CL PSYCHIATRY CONSULTATION PRIMARY ATTENDING: Mina Steel MD CONSULTING PSYCHIATRIST: Leonard Marcelino DO ADDITIONAL CONSULTANTS: Vera Grider DO, of Neurology. REASON FOR CONSULTATION: Capacity to make medical decisions including leaving against medical advice. SOURCES OF INFORMATION: Chart review[email or web address], interview with the patient, telephone discussion with Dr. Steel. CHIEF COMPLAINT: Unspecified. HISTORY OF PRESENT ILLNESS: This is an 81-year-old female who was admitted to [facility] last night. Apparently, she lives with an elder man from [place] and apparently he had heard a thud and found her lying on the ground in her bathroom, I believe; so, 911 was called. In the ER, she was found to have slurred speech. The patient was nonsensical. She was not able to form coherent sentences or name objects. She did not seem to be understanding verbal instruction. She started to improve en route. The patient did not recognize her own arm. The patient has a history of seizures. The patient was here with a similar presentation in 05/2020 and 07/2021. She has a left frontal lobe meningioma, insulin-dependent diabetes mellitus and seizure disorder. Reports medication noncompliance. She has declined EEG and MRI in the past. Of note, she did permit an EEG today. Recently, her driving privileges were revoked. There has been a question of dementia in the past. HOME MEDICATIONS: Including insulin detemir 2 units subcutaneous, MiraLax, Keppra 500 mg b.i.d. has been increased to 1000 mg b.i.d. ALLERGIES: No known allergies. SOCIAL HISTORY: No alcohol, tobacco or recreational drug use. The outside records from [facility] were noted that she left against medical [facility] [address] [place] [address] CONSULTATION Name: DORIS MARTINS Room #: 212-P [facility] IN M.R.#: [id number] Admission: 09/26/21 Attend Phys: Mina Steel MD Discharge: Date of : 42 Report #: [id number] advice on 08/26/2021. It looks like her date of admission was 08/09, and interestingly her [facility] admission was for altered mental status, hyperglycemia. Looks like she had seized then. Again, I am not sure why she was hospitalized that long. They did an MRI of the head at [facility], which showed the right anterior parafalcine meningioma measuring up to 1.7 cm, ____ deformity adjacent frontal lobe, no edema within the adjacent right frontal lobe, no midline shift, no acute infarct, mild generalized atrophy and chronic small vessel disease. This was read at [facility] and appears to be from 08/09. PAST HISTORY: Otherwise deferred, social history, due to ____ capacity consult. REVIEW OF SYSTEMS: A 12-point review of systems was reviewed, except negative, pertinent positives by hospitalist. One thing of note, we were unable to find a durable power of deputy prosecuting attorney documentation of the daughter. The nurse called the daughter. Daughter is going to call the brother and see if they can get it and fax it to us. LABORATORY DATA: Hematology: H and H 11.8 and 36.1, white count 6.4, platelet count 244. Coags: PT 11.4, INR 1.05, APTT 24.3. Chemistry noted as sodium 142, potassium 3.5, chloride 100, bicarbonate 27, anion gap 15, BUN 30, creatinine 0.9, estimated GFR 60, glucose ranging ____. The A1c was from May. Other recent labs, AST 19, ALT 19, alkaline phosphatase 59. Troponin I sensitivity 69. Total protein 6.3. Lipids were within normal limits. There was a vitamin D 1, 25 done, I do not see a vitamin D, B12 ____. TSH is 5.534, free T4 is 1.2, free T3 2.59, so that would be subclinical hypothyroidism. No drug screen done this admission. Urinalysis is pretty negative. They did not trigger a culture. COVID-19 rapid test was negative. PHYSICAL EXAMINATION: Wearing glasses, in hospital gown, seated on edge of bed. Fair hygiene and dress. MENTAL STATUS EXAMINATION: Well-developed, fairly dressed appearing female. Attention intact. She spelled world backwards. Concentration limited. Speech normal in rate, amount and tone. Thought process, linear and goal directed. Thought content focused on her lunch. I did do a 3-item recall with a 2-minute delay. She only recalled 1/3 items. She knew it was September. She said the year was 2020. She thought she was at [facility]. She did know it was a Monday. Memory impaired as described. Mood okay, congruent, euthymic. Denied SI, HI, auditory or visual type hallucinations. Insight and judgment were limited. Fund of knowledge is average. EDUCATIONAL HISTORY: Some college education. FORMULATION: An 81-year-old female admitted after likely breakthrough [facility] [address] [place] [address] CONSULTATION Name: DORIS MARTINS Room #: 212-P ADM IN M.R.#: [id number] Admission: 09/26/21 Attend Phys: Mina Steel MD Discharge: Date of : 42 Report #: [id number] seizure at home. The patient has a history of refusing medical care, leaving AMA, noncompliance with primary care. DIAGNOSES: At this time would be unspecified cognitive impairment, suspect major neurocognitive disorder, mild degree of seizure disorder, diabetes mellitus. Regarding the question of ability to make higher level decisions including refused medical care plan for future recognized alternatives. Given the patient's deficits on orientation, memory, recent repeat hospitalizations, having left AMA, I do not find her having capacity to do that at this time. If there is a DPOA, I would recommend that would be enacted at this time. Additional testing can be done including [employer] Evaluation of Living Skills. Neuropsych testing can be done as well. Inpatient care by Dr. Steel. The patient's level of support and care probably needs to be improved, but I will defer that to the hospitalist. Dr. Honeycutt will be back during the work week , further consultation and capacity reevaluation is necessary. Time spent on this case about 45 minutes, greater than 50% of the time was spent on review of records and coordination of care. <ELECTRONICALLY SIGNED> By: Leonard Marcelino DO 09/27/21 2103 [id number] 1959 Leonard Marcelino, /nt
[2021-09-28 03:41] VITALS: BP 115/44
--- NOTE | 2021-09-28 03:58 | NUR ---
Assumed pt care at 1900. Pt is sleeping upon arrival to room. No sign of distress noted in pt. Assessment completed and documented. Fall precaution in place. Scheduled meds administered to pt. No acute event noted through the night. Continue to monitor. No further needs at this time.
[2021-09-28 05:24] LABS: HEMATOCRIT 33.2 % (37.0-47.0); HEMOGLOBIN 11.1 gm/dL (12.0-15.0); MCH 31.1 pg (26.0-34.0); MCHC 33.4 g/dL (28.0-37.0); RBC 3.57 mil/uL (4.20-5.00); RDW 14.1 % (10.5-14.5); WBC 4.9 thou/uL (4.0-11.0)
[2021-09-28 05:42] LABS: CREATININE 0.6 mg/dL (0.6-1.0); MAGNESIUM 1.8 mg/dL (1.8-2.4); POTASSIUM 3.9 mmol/L (3.5-5.1)
[2021-09-28 10:03] VITALS: BP 128/60
[2021-09-28 12:12] VITALS: BP 123/55
--- NOTE | 2021-09-28 15:48 | NUR ---
I have reviewed the documentation by SINDHU WALKER from 09/28/21 to 09/28/21 and I concur with it. LAM PRICE, PT, DPT
--- NOTE | 2021-09-28 16:03 | NUR ---
CM RECEIVED MESSAGE THIS AM FROM NURSING INDICATING PT ATTEMPTING TO LEAVE AMA. CM INSTRUCTED DR ELDER AND DR GUILLEN DEEMED PT INCOMPETENT OF MAKING OWN DECISIONS AND NURSING AND RECOMMENDING PHYSICIAN NEEDED TO PLACE AFFIDAVIT ON PT CHART. INSTRUCTED TO LET DR GUILLEN KNOW AND FOLLOW HER RECOMMENDATIONS. PT MAY BE CANDIDATE FOR [facility]. CM CALLED NURSING BACK AND INFORMED CM DR GUILLEN RECOMMENDING PT POSSIBLY TRANSFERRED TO [facility]. LATER THIS AFTERNOON CM FOLLOWED UP WITH NURSING AND INFORMED STILL AWAITING BED AVAILABITY AND PT HAS NOT MOVED AT THIS TIME. NURSING INDICATED PHSYCIAN STARTED HALDOL AND ANXIETY MED AND AFFECTIVE AT THIS TIME. CM WILL FOLLOW AND CONTINUE TO FOLLOW FOR DC PLANNING.
[2021-09-28 16:35] VITALS: BP 124/50
--- NOTE | 2021-09-28 18:50 | NUR ---
ASSUMED PT CARE THIS MORNING. PT A&OX1 (SELF). PT WAS ANXIOUS AND REQUESTING TO LEAVE AMA. SW, PSYCH, AND HOSPITALIST ALL AWARE. WORKING ON GETTING PT A BED IN [facility]. PT WAS AGITATED AND UNCOOPERATIVE FOR THE MAJOIRTY OF THE SHIFT. PT NEEDED FREQUENT REDIRECTION THEY ATTEMPTED TO REMOVE TELE, PULLED ON THEIR IV, AND WERE WONDERING AROUND THE HALLS. PT HAD A GOOD APPETITE AND VOIDED WITHOUT ISSUES. NEW PRN ORDERS OBTAINED TO MANAGE AGITATION AND ANXIETY. PT TOLERATED THESE MEDICATIONS WELL.
[2021-09-28 19:19] VITALS: BP 116/55
[2021-09-29 03:55] LABS: HEMATOCRIT 33.3 % (37.0-47.0); HEMOGLOBIN 11.1 gm/dL (12.0-15.0); MCH 30.5 pg (26.0-34.0); MCHC 33.4 g/dL (28.0-37.0); MCV 91.4 fL (80.0-100.0); RBC 3.65 mil/uL (4.20-5.00); RDW 13.9 % (10.5-14.5); WBC 5.3 thou/uL (4.0-11.0)
--- NOTE | 2021-09-29 03:57 | NUR ---
Assumed pt care at 1900. Pt is alert, confused and becoming agitated and the beginning of the shift. Pt continues to insist that she wants to go home. Pt is very confused. RN continues to reorient patient. Assessment completed and documented. Blood sugar elevated, but continues to trend down through the night after insulin administration. Scheduled meds administered to pt. No acute event during the night. Continue to monitor. No further needs at this time.
[2021-09-29 04:13] VITALS: BP 135/70
[2021-09-29 04:45] LABS: CALCIUM 8.3 mg/dL (8.5-10.1); CREATININE 0.6 mg/dL (0.6-1.0); MAGNESIUM 1.8 mg/dL (1.8-2.4)
[2021-09-29 07:58] VITALS: BP 122/48
[2021-09-29] MEDS ORDERED: LORAZEPAM 0.50.5 MG PO (11:53)
[2021-09-29] MEDS ORDERED: KEPPRA 500 MG500 M1 PO (11:54)
[2021-09-29] MEDS ORDERED: PEPCID20 MG PO (11:54)
[2021-09-29] MEDS ORDERED: HALOPERIDOL 1 MG1 MG PO (11:54)
[2021-09-29] MEDS ORDERED: LEVEMIR100 UNIT/1 SUBQ (11:56)
--- NOTE | 2021-09-29 13:46 | NUR ---
CM SPOKE TO NURSING AND DISCUSSED CASE WITH CARE TEAM. PLAN CONTINUED TO TRANSFER PATIENT TO [facility] UNIT ONCE BED ABAILABLE. CM FOLLOWING.
--- NOTE | 2021-09-29 16:29 | NUR ---
PATIENT DISCHARGED TO [facility]. REPORT CALLED TO ADAMARIS. IV REMOVED WITH TIP INTACT. TUMBLER MACHINE OPERATOR HELPER REMOVED. SECURITY ASSISTED PATIENTS SIGNIFICANT OTHER OUT AND ALSO ASSISTED NURSING STAFF WITH PATIENT TO [facility]. PATIENT TRANSPORTED VIA WHEEL CHAIR WITHOUT INCIDENT. CARE TRANSFERRED TO STAFF IN [facility].
--- NOTE | 2021-10-12 10:11 | EEG ---
[facility] [place] [address] ELECTROENCEPHALOGRAM Name: DORIS MARTINS Room #: 212-P [facility] IN M.R.#: [id number] Admission: 09/26/21 Attend Phys: Mina Steel MD Discharge: 09/29/21 Date of : 42 Report #: [id number] THIS REPORT FOR: //name// DATE OF SERVICE: 09/26/2021 This patient is being evaluated for the possibility of seizure. EEG was done by placing the electrode by standard 10-20 system of electrode placement. Both referential and sequential montages were used for recording. Background activity in this patient's EEG is about 9 Hz and 30 microvolt. The patient became drowsy and that is associated with bilateral slowing. Photic stimulation is unremarkable. Throughout the record, no active epileptiform activity was noticed. IMPRESSION: This patient's EEG was unremarkable and did not demonstrate any active epileptiform activity. <ELECTRONICALLY SIGNED> By: Bubba Clayton MD 10/12/21 1011 [id number] Bubba Clayton MD /nt
== END 2021-09-29 17:13 | DRG 100 ==
LOC: ER 00:49 → EROBS 03:25 → 2N 03:25
PROVIDERS: Emergency Medicine; Hospitalist; Nurse Practitioner Family; ADMIT Internal Medicine; ATTEND Internal Medicine
DX: G40.909 Epilepsy, unspecified, not intractable, without status epilepticus (principal); G93.41 Metabolic encephalopathy; E44.1 Mild protein-calorie malnutrition; Z20.822 Contact with and (suspected) exposure to COVID-19; F03.90 Unspecified dementia, unspecified severity, without behavioral disturbance, psychotic disturbance, mood disturbance, and anxiety; D32.9 Benign neoplasm of meninges, unspecified; R53.81 Other malaise; E10.9 Type 1 diabetes mellitus without complications; N85.9 Noninflammatory disorder of uterus, unspecified; E07.81 Sick-euthyroid syndrome; N94.9 Unspecified condition associated with female genital organs and menstrual cycle; Z79.4 Long term (current) use of insulin; Z91.14 Patient's other noncompliance with medication regimen; Z90.49 Acquired absence of other specified parts of digestive tract; Z98.49 Cataract extraction status, unspecified eye; Z68.21 Body mass index [BMI] 21.0-21.9, adult
CPT/HCPCS: 10081

== ENCOUNTER 2021-09-29 13:02 | Inpatient (IN) | payer OTHER, MEDICARE ==
[~2021-09-29] VITALS: Ht 160 cm; Wt 50.8 kg
[~2021-09-29 13:02] MED LIST changes: +HALOPERIDOL 1 MG1 MG PO; +LEVEMIR100 UNIT/1 SUBQ; +LORAZEPAM 0.50.5 MG PO; +PEPCID20 MG PO
[2021-09-29 16:46] VITALS: BP 110/68
--- NOTE | 2021-09-29 17:11 | NUR ---
81 YEAR OLD FEMALE ARRIVES TO UNIT VIA WC FROM [address] [place] [address] ACCOMPNIED BY NURSING STAFF. PER INTAKE ASSESSMENT AND REPORT FROM ANUP PADGETT PT HAVING "SEIZURE-LIKE" ACTIVITY AND DID HAVE EEG AT [facility] CONFIRMING SEIZURE ACTIVITY. HAS HAD INCREASED CONFUSION/MED NON-COMPLIENCE. ARRIVES TO UNIT WEARING 1 PEICE INSULATED SNOW SUIT WITH NOTHING UNDERNEATH IT. IRRITABLE-DYSPHORIC MOOD-STATING REPEATDLY THAT IT IS A MISTAKE THAT SHE IS HERE-STATED TO THIS NURSE SHE BELIEVES HER CHILDREN AND THE DR THAT TOOK HER DRIVERS [employer] AWAY AND THE " DR THAT I JUST FIRED" ALL CONSPIRED TO PUT HER HERE-"I DON'T KNOW WHAT THEY ARE AFTER MAYBE MY HOUSE" ORIENTED TO ROOM AND UNIT -BELONGINGS SECURED-VS OBTAINED-AWAITING SUPER TRAY-BLOOD SUGAR 354.GAIT STEADY WITHOUT ASSISTIVE DEVICES HOWEVER WITH RECENT SEIZURE ACTIVITY SO PLACED ON FALL PRECAUTIONS
[2021-09-29 18:09] LABS: CHOLESTEROL 189 mg/dL (<200); HDL CHOLESTEROL 107 mg/dL (>40); LDL CHOLESTEROL 70 mg/dL (<100); TC:HDL 1.8 Ratio (Not establshd); TRIGLYCERIDE 64 mg/dL (<150); VLDL 13 mg/dL (<40)
[2021-09-29 19:23] VITALS: BP 142/53
--- NOTE | 2021-09-30 02:45 | NUR ---
At onset of autocad technician pt was walking in day room and asking staff to use the phone. This shift pt was only oriented to self. Pt was moslty compliant with medication. Pt took her keppra. Pt's blood sugar was 302 which calls for 9 units of lispro, but pt only wanted to take 5 units. Pt received 5 units as requested. Pt denied psych symptoms. Pt was very confused throughout shift. Pt talked about being in a magical place. Pt thought she was at [employer]. Pt was focused on somatic complaints; wondering if she needed a thyroidectomy. Pt made several phone calls to her significant other in the evening. While on the phone pt stated she was at a place where they punish people. Pt was pleasantly social with peers. Pt is a low fall risk. Will continue to monitor.
[2021-09-30 07:09] LABS: GLYCOHEMOGLOBIN (HGB A1C) 7.4 % (4.8-5.6)
[2021-09-30 10:08] VITALS: BP 104/47
--- NOTE | 2021-09-30 11:22 | NUR ---
Nutrition: Pt new admit to [facility] with dx dementia with behaviorial disturbance. PMH: IDDM, seizures, dementia. Pt confused. BG 126-354. On SSI, glargine added. Follow for BG improvement. Pt eating well 75-100% of meals on Carb controlled diet. Stable weights per hx. Consider low nutrition risk.
[2021-09-30 13:26] VITALS: BP 104/47
--- NOTE | 2021-09-30 13:39 | H ---
[facility] [place] [address] HISTORY AND PHYSICAL Name: DORIS MARTINS Room #: 527B-B ADM IN M.R.#: [id number] Admission: 09/29/21 Attend Phys: Leonard Marcelino DO Discharge: Date of : 42 Report #: [id number] THIS REPORT FOR: cc: Alysia Vences MD, Stany A. MD Kerstein, Andrew H. DO ~ DATE OF SERVICE: 09/29/2021 INPATIENT GERIATRIC PSYCHIATRIC EVALUATION REASON FOR ADMISSION: Dementia with behavioral disturbance and a safe discharge plan from medical floor as well. SOURCES OF INFORMATION: Interview with the patient, chart notes including a consultation by Dr. Honeycutt. Of note, I made a brief capacity consultation on the patient when she was medically admitted. CHIEF COMPLAINT: Unspecified. HISTORY OF PRESENT ILLNESS: This is an 81-year-old female initially admitted 09/26. Apparently, she was brought to the ER after being found unresponsive at home. She lives with her . He heard her fall to the floor. This occurred just after midnight. EMS found her speech was nonsensical. There was a concern for a stroke or a seizure. Initial glucose was 122. She does have insulin-dependent diabetes. Other medical problems include chronic meningioma, seizure disorder, medication noncompliance and dementia. There is a 1.8 cm meningioma along the anterior inferior falx, it is unchanged. CT of the head showed no large vessel occlusion in the arteries to the head or neck. Her NIH stroke scale was reported as 0. She had an EEG done, which was negative. Her Keppra has increased to 1000 mg twice a day. Of note, she had been admitted at [facility] in July with a similar episode, she left against medical advice, then she was admitted at [facility], I believe, she left there as well. Her daughter, Florinda, is her durable power of city attorney; however, documentation of this was not actually obtained through the day. PAST SURGICAL HISTORY: Includes appendectomy, cataract extraction. SOCIAL HISTORY: Denies tobacco, alcohol or recreational drug use. Also, some of the notes referred to her living with her . She lives with an older retired dentist. FAMILY HISTORY: Not known at this time. She is admitted as a full code. I had done this, also I had done a brief capacity consult this past Monday, 09/26, where she had clear deficits in memory and orientation, and I found her incapacitated to make healthcare decisions including leave against medical [address] [address] HISTORY AND PHYSICAL Name: DORIS MARTINS Room #: 527B-B ADM IN M.R.#: [id number] Admission: 09/29/21 Attend Phys: Leonard Marcelino, Discharge: Date of : 42 Report #: [id number]. LABORATORY DATA: Most recent EKG from 09/26 showed ventricular rate 124, QT 358, QTc 550 milliseconds and atrial fibrillation with left bundle-branch block. Imaging this admission, she did get a CT abdomen and pelvis. Apparently, they were normal, findings were small right pleural effusion, 2 cm low attenuation lesion on the medial aspect of the right lobe of the liver, pancreas normal. There is a large pelvic mass adjacent to the superior margin of the uterus, very large pedunculated uterine fibroid may be a consideration; however, other etiologies for large lobulated pelvic mass, could not have the ovarian origin not excluded, no pancreatic mass. A 2 cm lesion in the far medial aspect of the right lobe of the liver, cholelithiasis. Interestingly, she had a pelvic transvaginal ultrasound on the and that showed a large 10.4 cm subserosal uterine fibroid. A PAPER BAG PRESS OPERATOR consultation could be considered. Actually, I think she did see Dr. Beaver today, so I am going to see that consultation noted. Likely fibroadenoma, we would recommend close followup with repeat ultrasound in 3 months, and if stable again in 6-month interval of growth or if patient becomes symptomatic, a surgical management can be explored. The laboratories were noted during the medical admission, slight anemia, hemoglobin down to 11.1, white count normal. Chemistries other than elevated glucose, normal on a BMP. other concerns. Total bilirubin was elevated at 1.6, direct bilirubin high at 0.3, albumin low at 3.0. Lipids were normal. TSH 5.534. Folate 11.7. B12 of 400. Urine was fairly negative. Toxicology was negative. Keppra level came back at 23.3, which is okay for that. COVID-19 serology was negative. PHYSICAL EXAMINATION: VITAL SIGNS: Temperature 36.8, pulse 71, respirations 18, BP 142/50, O2 sat 98%. MUSCULOSKELETAL: Normal gait and station. Wearing glasses. MENTAL STATUS EXAMINATION: Well-developed, age-appearing female. Attention fair. Concentration limited. Speech normal in rate, amount and tone. Thought Process: Linear and goal directed. Thought content: Focused on the present. Denied suicidal or homicidal ideation, auditory or visual type hallucinations. Denied hopelessness, helplessness. Memory known to be impaired, but not formally tested today. Insight and judgment limited. Fund of knowledge, no greater than average. FORMULATION: An 81-year-old female discharged from the [facility] Nursing Unit downstairs, now admitted via DPOA to Geriatric Psychiatry. DIAGNOSES: At this time, major neurocognitive disorder, suspect Alzheimer's disease with some behavioral disturbance. Additional morbidities include diabetes mellitus, seizure disorder, large uterine mass, euthyroid sick syndrome, chronic meningioma, mild protein-calorie malnutrition, weight 51.71 [facility] [place] [address] HISTORY AND PHYSICAL Name: DORIS MARTINS Room #: 527B-B ADM IN M.R.#: [id number] Admission: 09/29/21 Attend Phys: Leonard Marcelino DO Discharge: Date of : 42 Report #: [id number] kg, BMI 20.2. PLAN: The patient admitted to Geriatric Psychiatry, evaluated, stabilized. Hospitalist is consulted. At this point, I will attempt contact today with the daughter and DPOA Beverly, if not definitely tomorrow . The patient will likely need placement. We will attempt to stratify her functional level better. SLUMS/CINDY has not been done, I am suspecting at least AL, possibly a memory care level placement. STRENGTHS: She is insured, has a DPOA. WEAKNESSES: Needs 24/7 care and accompanied comorbidities. She is a full-code. No known allergies. <ELECTRONICALLY SIGNED> By: Leonard Marcelino DO 09/30/21 1339 23 23 Leonard Marcelino, DO /nt
--- NOTE | 2021-09-30 14:20 | NUR ---
Resummed care @0700; Patient was up in the dinning area along side her peers. No S/O acute distress noted. A&O*2/3 - confused, forgetful. Patient states she likes to write things down to remember things. Presents to DIRECTOR MORTGAGE calm, cooperative, anxious, with a disorganized thought process. Patient was hyperverbal during her assessment, and would move from one subject to another in mid sentence. Patient verbalized she is upset that she's here, " I made a mistake with my insulin, I didn't mean any harm by it." " I just was trying to control my morning blood sugar." Patient believes she is on our unit for accidently taking to much insulin. V/S present hypotensive, otherwise stable. Lung sounds clear bilaterally; BSP*4-NT-ND; Bilateral traces of Edema ankles; Patient complaint of Left shoulder pain, states this pain is a chronic pain, and is intermittent. Patient denies SOB-CP; Denies SI/HI/AVH; Patient is up ad-teja, gait visualized steady. Seziure precautions in place, Low-Fall precautions. Will continue to monitior per [facility] protocol.
--- NOTE | 2021-09-30 14:40 | NUR ---
Primary nursing care done by Nabeel Samuels LPN Alert and orientated to person, place and situation. Denies SI/HI. Wants to go home. Focused on insulin needs/mistake. Breath sounds clear. Reg HR auscultated. Color pink with brisk capillary refill and palpable peripheral pulses. No edema noted. Active bowel sounds over soft, rounded abdomen. Ambulates with regular, steady gait.
--- NOTE | 2021-09-30 15:52 | NUR ---
Meeting with patient and Dr. Marcelino. Patient walked straight and fast. Patient did not utilize a walker and did not require any assistance standing. Patient reports being able to eat, wash herself and complete ADLS without assistance along with cleaning the house. The patient reports being a high school graduate. She stated she did not attend college nor did she work as her father was wealthy from being in the [employer]) and a masterson. The patient reports that she was once but that the marriage ended as he was linder. The patient reports she and him had sex only one time resulting in her daughter, Beverly. The patient reports Beverly has taken over the father's business and also has car washing businesses in [place]. The patient has a son from a different relationship, Gentry. When asked if she knew why she was here, the patient responded that she doesn't know why but that it wasn't for a "bad" reason. The patient continued on to say that her "sweetheart", Dr. Macnera, may have asked for her to be brought here. The patient reports her mother was a Mormonism Core Java Software Engineer. The patient does not identify with this nor any other sabianism. The patient had one older brother who is . The patient described the brother as having a "split personality" and that the brother could be caring one minute and controlling the next. The patient reports enjoying watching television and taking care of her cats. When asked what she would like from here, the patient stated she, "wants to go home, feel rebuilt, restrengthened and reassurred".
[2021-09-30 19:28] VITALS: BP 92/43
--- NOTE | 2021-10-01 05:05 | NUR ---
PATIENT IS AAOX3. SHE APPEARS TO EXHIBIT SOME MILD MANIC BEHAVIORS. SHE IS HYPERVERBAL. WHEN ASKING HER QUESTIONS SHE GIVES SHORT ANSWERS AND REVERTS BACK TO TALKING ABOUT HER BLOOD SUGAR. SHE STATES THAT SHE DID NOT WANT TO TAKE HER KEPPRA BECAUSE IT IS CAUSING HER SKIN TO BREAK DOWN. PATIENT DOES HAVE DRY SKIN TO THE LEFT ANKLE THAT LOOKS LIKE SHE HAS BEEN ITCHING IT. SHE ALSO STATED THAT SHE DIDNT WANT TO TAKE ZYPREXA BECAUSE SHE DID NOT NEED IT. AFTER TALKING FOR A BIT SHE DECIDED THAT SHE WOULD TAKE THEM. SHE WAS ABLE TO REST FOR MOST OF TH EVENING. NO S/S OF DISTRESS NOTED. WILL CONTINUE TO MONITOR FOR CHANGES IN PATIENT STATUS.
[2021-10-01 09:04] VITALS: BP 151/72
--- NOTE | 2021-10-01 10:46 | NUR ---
up and visible on unit-gait steady with USE OF ROLLER WALKER. DENIES SI/SH/HI. CONTINUES TO STATE IT WAS A "MISTAKE" THAT SHE IS HERE AND STATES IS "FURIOUS" WITH HER CHILDREN FOR PUTTING HER HERE. ON PHONE FREQUEMTLY DURING FREE TIME. APPEARS UPSET/RAISED VOICE WHILE USING PHONE. DENIES AND MINIMNIZES WHEN STAFF ASK ABOUT THIS. BS 206 THIS AM-INITIALLY REFUSES TO EAT BREAKFAST AT ALL STATING "I DON'T EAT WHEN MY BS HIGH MY DR IN [place] TOLD ME NOT TOO"
--- NOTE | 2021-10-01 17:18 | NUR ---
Phone message received from Beverly Rinaldi ([phone])
[2021-10-01 19:44] VITALS: BP 116/48
--- NOTE | 2021-10-02 00:41 | NUR ---
At onset of industrial retrofit designer pt was sitting in savannah chair in day room reading the newspaper and socializing with peers. This shift pt was alert and oriented to self, date and place. Pt continues to lack insight into why she is hospitalized. Pt stated "it is ridiculous I am here after accidentally taking too much isulin." Pt's blood sugar at HS was 52. Pt was provided with apple juice and yogurt. Pt was asymptomatic and did not realize she was hypoglycemic. Pt denied psych symptoms. Pt was compliant with vital signs and medications. Affect was broad and pt was overall calm, pleasant and cooperative. Pt is low fall risk. Will continue to monitor.
[2021-10-02 13:06] VITALS: BP 106/47
--- NOTE | 2021-10-02 15:00 | NUR ---
Resummed care @0700; Patient located in her room, resting comfortably. No S/O acute distress noted. A&O*3 - Forgetful. Patient appears anxious, cooperative, pleasent. Denies SI/HI/AVH; Denies pain, SOB, CP. Patient ambulatory without aid-gait steady. V/S present hypotensive 106/47, otherwise stable. Patient has been up and being social with her peers throughout the day. Complaint of " Just wanting to go home already." Patient on Low-fall precautions. Will continue to monitior per [facility] protocol.
--- NOTE | 2021-10-03 02:16 | NUR ---
At onset of warehouse shift supervisor pt was sitting in day room watching TV and socializing with peers. This shift pt was alert and oriented to self and place. Pt continues to lack insight into reason for admission, but pt understands she is on a behavioral health unit. Pt denies psych symptoms. Pt was compliant with PO medication. Pt's blood sugar was 229 at approx 2130. Pt refused insulin stating that if she was home she would only take 0.5 units of insulin. Pt was mostly calm, pleasant and cooperative. Pt talked about how she has a doctors appointment on Monday and her own doctor "says I cannot see, but my eyes are fine." Pt is low fall risk. Will continue to monitor.
[2021-10-03 09:37] VITALS: BP 119/60
--- NOTE | 2021-10-03 14:10 | NUR ---
Assumed pt care from overnight shift this am. Pt presented alert and oriented to person and place. Pt pleasant during assessment. Pt education given on new insulin protocol during this time. All morning insulin taken, though refused lunch time insulin as pt stated "We'll just wait and see- I think my blood suagr is too low." Lung glucose 109 and further pt education done about insulin during this time. Pt continued to state that she would wait until dinner time for further insulin. Pt denies dep/anx. Denies si/hi. Denies pain. Denies hallucinations. Participated in group and spoke to peers during this shift. No further concerns at this time.
[2021-10-03 19:45] VITALS: BP 119/60
--- NOTE | 2021-10-04 03:26 | NUR ---
PATIENT CARE WAS RESUMED AT 1900. SHE IS SLEEPY RESTING IN THE DAY ROOM ON A RECLINER. SHE IS ALERT AND ORIENTED. MODERATE ASSIST WITH CARE. LUNGS ARE CLEAR BS ACTIVE X4 QUADS. SHE TOOK HER MEDS WHOLE AND DENIES PAIN/SI/AVH/HI. SHE IS ABLE TO VERBAIZE SOME NEEDS. SHE IS INCONTINENET OF BOWEL. SHE TRIED GETTING OUT OF THE JOVAN-CHAIR MULTIPLE TIMES AND WAS REDIRECTED. BED IS LOW, LOCKED AND ALARMED. CONTINUE CARE
--- NOTE | 2021-10-04 04:07 | NUR ---
RN assumed patient care at 0100. At this time pt was observed resting calmly in bed. Pt is a low fall risk. Will continue to monitor.
[2021-10-04 06:28] VITALS: BP 116/43
[2021-10-04 09:47] VITALS: BP 116/43
--- NOTE | 2021-10-04 10:38 | NUR ---
Resummed Care @0700: Patient was located in her room, restinf in bed comfortably. Patient was awoken by staff, too come and attend breakfast. A&O*2- confused, forgetful. No S/O acute distress noted. Patietn presents calm, cooperative. Although after speaking to MD Marcelino this morning patient has become very irritable, and angry. Patient was to discharge home, and refuses to be set to a facility. After speaking with MD Marcelino patient verbalized she wanted to call her Duster Tender. MD Marcelino informed of patients compaints. Patient is cooperative and pleasent with cares. Denies SI/HI/AVH. Denies pain, SOB, CP. Patient verbalizes " I'm just angry with this ass of a rain, he calls a doctor." V/S presented hypotensive, otherwise stable. Gait visualized steady, no ambulatory aid is used. Lung sounds clear bilaterally. BSP*4.NT.ND. Patient has had to be redirected multiple times today. High-Fall Risk precautions are in place. Sezuire precautions in place. Will continue to monitior per [facility] protocol.
--- NOTE | 2021-10-04 11:25 | NUR ---
Spoke with Beverly, pt daughter. Notified of covid positive test. Denies patient testing positive for Covid in the past. Patient placed in isolation at this time.
--- NOTE | 2021-10-04 14:17 | NUR ---
Family meeting with Dr. Marcelino, LEONARDO, Beverly and Brant. Family informed that the patient tested positive for Covid. Family reports that the patient has not previously tested positive and has had multiple tests due to multiple hospital visits. The patient had the Covid vaccination in approximately October 2020 and the booster shot when available. The family informed that the patient will be moved to a different floor should it be determined that the test was not a false positive. Dr. 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 He recommended AL memory care for the patient. The family inquired about home health for the patient as the patient wants to return home with her significant other. Dr. Marcelino explained this would be difficult especially with the significant other also having some issues with dementia. The patient does not have terminal block assembler care insurance and is overqualified for Medicaid. Beverly continues to look into the patient's finances but states that she may need the patient's permission/signature. The family would like for the to send a referral to [facility] and [facility] as they have had a previous experience. Referrals will also be sent to [facility], [facility] and [facility]. Dr. Marcelino reviewed medication with the family. The family inquired about the neuropsych evaluation in which Dr. Marcelino explained could not be completed inpatient at this time. Dr. Marcelino also reviewed the notes from the patient's visit with the unionmelt operator as the family reported that information had not been shared with them.
--- NOTE | 2021-10-04 15:51 | NUR ---
Patients Second PCR result recieved; Results Negative: Isolation was discontinued per MD Bradley. Deep continue to monitior.
[2021-10-04 19:40] VITALS: BP 134/47
[2021-10-04 19:51] VITALS: BP 133/42
--- NOTE | 2021-10-05 02:40 | NUR ---
PATIENT CARE WAS RESUMED AT 1900. [facility]SHE IS CONFUSSED AND SHE WAS REQESTING TO TALK TO HER FAMILY MEMBERS. SHE TOOK HER MEDS WHOLE. DENIES PAINS/SI/AVH. LUNGS ARE CLEAR, BS ACTIVE X4 . SHE IS CONTINENT OF BOWEL AND BLADDER. BED IS LOW. LOCKED AND ALARMED. [id number] CHECK IS ONGING CONTINUE CARE
--- NOTE | 2021-10-05 10:15 | NUR ---
Alert and orientated X3. Denies SI/HI. Wants to go home. Breath sounds clear. Reg HR auscultated. Color pink with brisk capillary refill and palpable peripheral pulses. No edema noted. Active bowel sounds over soft, rounded abdomen. Independent with voiding. States she had BM yesterday. Ambyulates with regular, steady gait. Calm and cooperative all AM, participating in groups. Anxious when talking on phone raising voice slightly at times. Telling caller that she wanted to go home and that she had fallen while here. Calm once off phone.
--- NOTE | 2021-10-05 11:40 | NUR ---
Faxed referrals to: - [facility] Saturn[facility] ([phone]). Informed currently waiting list of 12 ahead of her - [facility] (Shaye [phone]) - [facility] ([facility] [phone]) - [facility] - Adela De La Torre ([phone])
[2021-10-05 19:40] VITALS: BP 133/42
--- NOTE | 2021-10-06 03:33 | NUR ---
PATIENT CARE WAS RESUMED AT 1900. SHE WAS AT [facility] SOCIALIZING WITH ELIE COLLIERAdrian. SHE AMBULATES, MINI ASIT WITH CARE. LUNGS ARE CLEAR BS ACTIVE X4QUAD. SHE TOOK HER MEDS WHOLE, DENIES PAINS/SI/AVH/HI. SHE WANT TO TALK TO HER FAMILY MEMBERS AT ALL TIME. YELLOW TOP AND SOCKS ON. BED IS LOW, LOCKED AND ALARM.
--- NOTE | 2021-10-06 08:44 | NUR ---
Email received from Franco requesting an OT/PT screening for the patient. Franco also expressed in the email that the patient's spouse could assist with supervision of the patient in the home.
[2021-10-06 10:09] VITALS: BP 137/74
--- NOTE | 2021-10-06 10:35 | NUR ---
Followup: remains on [facility]. Eating 100% of meals. Wt down 3 lb. BG 35-272 and diabetic medication orders changed. Remains on carb control diet. Low nutrition risk
--- NOTE | 2021-10-06 11:16 | NUR ---
RT Progress Note- Roseline has been consistently present in both the milieu and recreation therapy groups. She participates with enthusiasm. FISHER SPONGE HOOKING will encourage continued participation throughout the remainder of her admission.
--- NOTE | 2021-10-06 14:16 | NUR ---
HAS BEEN VISIBLE IN DAYROOM SITTING WITH FEMALE PEERS-ATTENDING SCHEDULED GROUPS WITH GOOD LEVEL OF PARTICIPATION.DEFENSIVE AND ARGUMENTATIVE AT TIMES WITH NURSING STAFF AND MD. MINIMIZES EVENTS LEADING TO HOSPITAL STAY AND INSISTS IT IS "MISTAKE" THAT SHE IS HERE. GAIT STEADY WITH USE OF ROLLER WALKER. APPETITE IS GOOD-EATING 100 PERCENT OF MEALS. BS AT 0700 153-BS AT 1100 70-DR DUQUE INFORMED OF BLOOD SUGAR READINGS AND "0" RECEIVED. RECHECK AT 1330 BS IS 220 "
--- NOTE | 2021-10-06 18:40 | NUR ---
BLOOD SUGAR AT 130 IS 60-PT REFUSED 1700 SCHEDULED INSULIN WHEN APPROACHED-"I NEVER TAKE INSULIN WHEN MY BLOOD SUGAR IS THIS LOW-THAT IS HOW MY DR WANTS IT" DR DUQUE CONTACTED RE ABOVE.NO NEW ORDERS RECEIVED
[2021-10-06 19:22] VITALS: BP 123/69
[2021-10-06 20:20] VITALS: BP 123/69
--- NOTE | 2021-10-06 22:46 | NUR ---
PATIENT SAT UP IN DINING ROOM WATCHING TV UNTIL BED TIME. SHE HAS BEEN CALM, HAPPY AND VERY POSITIVE IN HER ATTITUDE. SHE HAS COMPLIMENTED THE HOSPITAL FOOD AND STATES THE STAFF HAS BEEN KIND AND CARING. HER BLOOD GLUCOSE WAS 371 AROUND 1930 TONIGHT. RECHECKED IT AT 2019 AND WAS 398. PATIENT WAS GIVEN LISPRO 12 UNITS PER SS. RECHECKED BLOOD GLUCOSE AT 2230 WHEN PATIENT WAS GOING TO BED AND IT HAD ALREADY DROPPED TO 114. HAD PATIENT DRINK ORANGE JUICE AND EAT PEANUT BUTTER TO HELP HOLD GLUCOSE UP THRU THE NIGHT AND NOT DIP TOO LOW. PATIENT NOT HAVING ANY SIDE EFFECTS OF LOW INSULIN. NO DIZZINESS OR LIGHT HEADNESS OR CONFUSION. PATIENT HAS GONE BACK TO ROOM TO SLEEP. SHE IS EXCITED ABOUT GOING HOME IN 2 DAYS. SHE IS A/0X4. SHE TOOK HER MEDS WHOLE WITH WATER. SHE DENIES PAIN, SI/HI/AVH. PATIENT WALKS WITH A STEADY GAIT. NO BEHAVIORS NOTED . ROUTINE ROUNDS TO ASSESS STATUS AND SAFETY OF PATIENT.
--- NOTE | 2021-10-07 02:03 | NUR ---
RECHECKED PATIENT'S ACCUCHECK GLUCOSE AT 0130 AND IT WAS 31. PATIENT ASYMPTOMATIC. HAD PATIENT DRINK 8 OUNCES OF APPLE JUICE AND CALLED Otilia CRAVEN NP. SHE SAID TO CHECK SUGAR AGAIN IN 20 MINUTES AND CALL HER WITH RESULT. NEXT ACCUCHECK GLUCOSE WAS AT 55. NOTIFIED ERYN SHEEHAN. ORDER GIVEN TO HOLD ALL INSULINS, NO MATTER HOW HIGH, UNTIL HOSPITALIST SEE'S PATIENT ON 10/07/21 TO DETERMINE HOW TO MOVE FORWARD WITH TREATMENT FOR DM. ONE GLUCOSE TAB GIVEN AND TO RECHECK GLUCOSE AT 0230 AND CALL ERYN SHEEHAN WITH RESULT.
--- NOTE | 2021-10-07 02:32 | NUR ---
GLUCOSE ACCUCHEK AT 0230 WAS 143. Otilia CRAVEN NP NOTIFIED BY PHONE. NO NEW ORDERS. CONTINUING TO MONITOR.
[2021-10-07 09:11] VITALS: BP 123/69
--- NOTE | 2021-10-07 09:27 | NUR ---
RESUMMED CARE FROM OVERNIGHT SHIFT THIS AM PATIENT ALERT ORIENTED TIMES 4. PATIENT ATE BREAKFAST TOOK MEDICATION WITHOUT INCIDENCE PATIENT DENIES SI/HI/AH/VH AT PRESENT. PATIENTS ABDOMEN SOFT BOWEL SOUNDS PRESENT, PATIENTS LUNGS CLEAR. PATIENT IS VERY EXCITED SHE WILL BE LEAVING [place], PATIENT PARTICPTED IN GROUPS. PATIENT HAS NOT DISPLAYED ANY BEHAVIORS; WILL CONTINUE TO MONITOR PATIENT FOR SAFETY AND BEHAVIORS.
--- NOTE | 2021-10-07 09:32 | NUR ---
Phone call received from Barbara ([phone]) stating the referral was received and they would need to review. The will send the order once received. Phone call also received from [facility] stating they would review. Phone call received from Lori Garcia of [facility] stating they would accept and that they would just need the order faxed to them once received.
[2021-10-07 19:55] VITALS: BP 123/69
--- NOTE | 2021-10-08 00:42 | NUR ---
PATIENT CARE WAS RESUMED AT 1900. SHE IS ALERT AND ORIENTED. AMBULATES AND ABLE TO VERBALIZE HER NEEDS. SHE DENIES PAINS/SI/AVH/HI. SHE TOOK HER MEDS WHOLE. LUNGS ARE CLEAR BS ACTIVE X4 QUADS. BS WAS 28 THIS SHIFT AND ORANGE JUIC/PBJS GIVEN WTIH GOOD EFFECT OF 103 AT 2100. ORDER TO RECHECK IN 2HRS IN PLACE.PATIENT EXCITED ABOUT GOING HOME. YELLOW SOCKS AND TOP ARE ON. BED IS LOW, LOCKED AND ALARMED. Q12 MINUTES CHECK IS ONGOING. CONTINUE CARE
[2021-10-08 09:40] VITALS: BP 134/63
--- NOTE | 2021-10-08 12:21 | NUR ---
INITIALLY THIS AM UP IN [facility] RE DC SCHEDULED FOR THIS PM. AFTER MEETING WITH MD WAS INFORMED THAT SHE WOULD REQUIRE ADDITIONAL HOSPITAL STAY TO STABLAIZE BLOOD SUGAR. PER DISCUSSION WITH DR. DUQUE AND DR BAIRES PT IS TO DRAW UP AND ADMINISTER INSULIN UNDER NURSES SUPERVISION IN PREPERATION FOR DC. SHE DID COMPLETE DRAWING UP AND ADMINISTERING 1100 INSULIN WITH THIS NURSE SUPERVISING AND DEMONSTRATED COMPETENCY. FULL RANGE AFFECT. BRIGHT AND SMILING-SOCIAL WITH STAFF AND PEERS. GAIT STEADY WITHOUT ASSISITVE DEVICES
--- NOTE | 2021-10-08 17:02 | NUR ---
Email received from Franco stating Beverly had not heard from home health and that he felt it would be best for the patient to not be discharged today.
--- NOTE | 2021-10-08 17:47 | NUR ---
Pt napping when entered room to obtain scheduled accucheck. Pt pleasant and conversive talking about her diabetes. No s/o distress. Initial AC was 34. Immediately rechecked--32. Pt continued to be conversant and cooperative without s/o distress. Txed with 8 oz of orange juice. Pt resistant to drinking last oz of OJ stating that she was full and that she was being overtreated and that BG would go too high. Finished with verbal encouragement. Danyelle Spaulding primary care RN notified, spoke with Dr. Steel and received orders. BG and AC drawn per L AC with butterfly. AC 114 just prior to dinner, cosigned 4 U insulin. Pt eating dinner without s/o distress.
[2021-10-08 19:15] VITALS: BP 127/68
--- NOTE | 2021-10-08 21:09 | NUR ---
At onset of night time babysitter pt was sitting in day room watching TV. This shift pt was alert and oriented x3. Pt still believes that she does not have memory problems and was admitted because she made a mistake with her insulin. Pt was calm, pleasant and cooperative. Compliant with medication and vital signs. When taking her keppra pt stated she does not believe she has a seizure disorder and stated the times she has had seizures it has been related to low blood sugar. Pt is disappointed that she is still in the hospital but stated she is grateful that the doctors care about her. Pt's blood sugar was 337, which indicates 3 units per sliding scale. Pt stated she only wanted to take "1.5 units." Pt lashell up her own insulin and self-administered between 1-2 units. Pt is able to read the insuline syrine well and was able to reach around to administer the injection in the adipose tissue in the back of her left arm. Pt is low fall risk. Will continue to monitor.
--- NOTE | 2021-10-08 22:02 | NUR ---
At onset of auto mechanic apprentice pt was sitting in savannah chair in day room. This shift pt was alert and only oriented to self. Pt was placed into bed by job training specialist before med pass. RN attempted to feed pt's med crushed in ice cream while in bed. Pt would not open his mouth and stated he did not want food. RN administered IM 2.5mg Haldol for refusal of PO Haldol. Pt did not require a manual hold but did yell during injection and told RN to get away from him. Pt refused physical assessment. Did not answer psych questions, but no outward signs of SI. Pt is high fall risk. Fall precautions are in place. Will continue to monitor.
[2021-10-09 08:55] VITALS: BP 122/60
[2021-10-09 09:23] VITALS: BP 122/60
--- NOTE | 2021-10-09 12:16 | NUR ---
RESUMMED CARE FROM OVERNIGHT SHIFT THIS AM, PATIENT IN ROOM LYING QUIET. I ASKED PATIENT TO GET READY FOR BREAKFAST, SHE DID HER HYGIENE AND CAME OUT TO EAT. PATIEMTS BLOOD SUGAR THIS AM WAS 300, THEN I REROOK BS AT 10:36 IT WAS 215. LUNCH TIME 215 PATIENT INSULIN FOR AM AND LUNCH. PATIENT DENIES SI/HI/AH/VH AT PRESENT. PATIENTS ABDOMEN SOFT BOWEL SOUNDS PRESENT PATIENTS LUNGS CLEAR. PATIENT IS VERY ANXIOUS TO GO HOME HOPEFULLY MONDAY; HER ANXIETY AND DEPRESSION IS A 2. PATIENT PARTICIPATED IN GROUPS NO BEHAVIORS WILL CONTINUE TO MONITOR PATIENT FOR SAFETY AND BEHAVIORS.
[2021-10-09 19:33] VITALS: BP 128/51
--- NOTE | 2021-10-10 00:39 | NUR ---
At onset of shift coordinator pt was sitting in day room watching TV calmly. This shift pt was alert and oriented to self and place. Pt stated the date was the . Pt stated "it's hard to keep the date straight in here." Pt continues to believe she is hospitalized after taking the incorrect dose of insulin. Pt was compliant with her medication but asks questions about side effects. Pt asks if she will take these medications at home after discharge. Pt was social with peers. Pt was upset for another peer, since peer was denied her cell phone per unit protocol. Pt denied SI, HI and AVH. Pt stated she would like to leave Monday night. Pt is low fall risk. Will continue to monitor.
[2021-10-10 03:49] LABS: CALCIUM 8.8 mg/dL (8.5-10.1); CREATININE 0.9 mg/dL (0.6-1.0); POTASSIUM 4.5 mmol/L (3.5-5.1)
[2021-10-10 09:00] VITALS: BP 149/60
[2021-10-10 09:21] VITALS: BP 149/60
--- NOTE | 2021-10-10 14:08 | NUR ---
Assumed pt care from overnight shift this am. Pt presented alert and oriented 4x at this time, and was calm and cooperative. Pt has been having erratic blood sugars on this shift- insulin regime changed to accomodate this by Dr. Steel, and pt has been monitored closely for bg changes, with blood sugars being taken before and after meals to assure stability and pt wellness. Pt currently on sliding scale and scheduled insulins. Pt denied depression during assessment. Pt stated some anxiety from "being in the hospital" when asked. Pt denied si/hi, stating "life is beautiful; you only have one." Pt stated "no new aches and pains, just the ones I came in with" when asked. Pt denied hallucinations at this time. Pt took all medication and well tolerated. Lung sounds clear. Bowel sounds active. No further concerns at this time.
[2021-10-10 19:20] VITALS: BP 119/55
--- NOTE | 2021-10-11 00:02 | NUR ---
At onset of nigt shift pt was sitting in day room watching TV and socializing with peers. This shift pt was alert and oriented x3. Pt lacks insight into situation. Pt does not believe she has memory issues and believes she is hospitalized because she made a mistake with her insulin. Pt was compliant with HS medication, but stated she had not taken this medication before. RN explained to pt that she has been taking her medication BID for several days. Pt stated she needed nurse to explain what her medications are for. RN has been pt's nurse the last two night shifts and has gone over pt's medications with her multiple times. RN again explained to pt what zyprexa, memantine, and keppra are for. Pt stated she does not think she needs medication for her brain and is worried about side effects. Pt stated the back of her neck hurt and wanted it to be documented that she believes her medications may be causing this discomfort. At this time pt does not appear to be experiencing EPS. Pt denied psych questions. Pt stated she hopes she can leave tomorrow and knows she is meeting with a new doctor. PT is low fall risk. Will continue to monitor.
[2021-10-11 04:38] LABS: CALCIUM 8.4 mg/dL (8.5-10.1); CREATININE 0.7 mg/dL (0.6-1.0); MAGNESIUM 1.9 mg/dL (1.8-2.4); POTASSIUM 4.1 mmol/L (3.5-5.1)
[2021-10-11 04:45] VITALS: BP 153/70
[2021-10-11 08:10] VITALS: BP 149/88
[2021-10-11 09:03] VITALS: BP 153/70
[2021-10-11] MEDS ORDERED: KEPPRA750 MG PO (09:03)
[2021-10-11] MEDS ORDERED: NAMENDA 10 MG T10 MG PO (09:04)
[2021-10-11] MEDS ORDERED: OLANZAPINE2.5 MG PO (09:04)
[2021-10-11] MEDS ORDERED: LANTUS SUBQ (09:06)
[2021-10-11] MEDS ORDERED: HUMALOG100 UNIT/1 SUBQ (09:07)
[2021-10-11] MEDS ORDERED: B-12500 MCG PO (09:08)
[2021-10-11 09:26] VITALS: BP 149/88
--- NOTE | 2021-10-11 09:32 | NUR ---
Email received from Beverly stating the patient had reached out to Dr. Craig Stephens. Beverly would like for the follow up appointment to be scheduled with him.
--- NOTE | 2021-10-11 09:33 | NUR ---
Email to Beverly stating the SW would follow up with Dr. Stephens. The SW will also ask the doctor if the patient would be discharged today.
--- NOTE | 2021-10-11 09:34 | NUR ---
Phone call to Dr. Craig Stephens. Scheduled appointment for 10/14/2021 at 9:30am. Contacted Jaylin with [facility] to inform that the appointment was scheduled. Jaylin reported that since this was a new appointment for the patient, [facility] would have to wait until Monday to meet with the patient to determine that she actually followed through with the appointment.
[2021-10-11 12:36] VITALS: BP 149/88
--- NOTE | 2021-10-11 12:56 | NUR ---
Faxed discharge to [facility] and Primary Care Physician
--- NOTE | 2021-10-11 14:12 | NUR ---
Assumed pt care this morning from overnight shift. Pt presented anxious and nervous this morning, and persistantly was asking staff for phone. Informed pt that she would need to wait until after seven in morning for phone per [facility] policy. When had phone, pt told her significant other that she was leaving immediately and had a cab voucher. This was clarified multiple times with pt, as pt had yet to receive discharge date or time as of this morning. Clarified with significant other, who is one of DPOAs, as well, informing him that pt needed to wait until team meeting was over to have discharge planned, as provider was in charge of primary discharge planning. Pt and dpoa voiced understanding. During assessment, pt denied depression stating she was only anxious to go home. Pt stated that she was not having hallucinations, and denied si/hi at this time. Pt denied pain as well. Pt education given on insulin administration and blood sugar monitoring during this time, and further clarified dosing scale with pt. Pt given discharge time of 1pm today after team meeting. Explained this to pt and significant other. As significant other is confused in terms of decision and decision making, and does not understand pt situation, Beverly, daughter and alternate DPOA called. Verbal consent obtained for discharge to home at this time. Pt was picked up by Beverly @ 1pm. All belongings taken with pt. No further concerns.
--- NOTE | 2021-10-12 21:28 | D ---
[facility] [place] [address] DISCHARGE SUMMARY Name: DORIS MARTINS Room #: 52-A [facility] IN M.R.#: [id number] Admission: 09/29/21 Attend Phys: Leonard Marcelino DO Discharge: 10/11/21 Date of : 42 Report #: [id number] THIS REPORT FOR: cc: Alysia Vences MD, Stany A. MD Kerstein, Andrew H. DO ~ DATE OF SERVICE: 10/11/2021 INPATIENT PSYCHIATRIC DISCHARGE SUMMARY ATTENDING PSYCHIATRIST: Leonard Marcelino DO RADIAL ROUTER OPERATOR: Mina Steel MD DISCHARGE DIAGNOSES: Major neurocognitive disorder, likely due to Alzheimer's disease with behavioral disturbance improved. MEDICAL COMORBIDITIES: Include type 1 diabetes mellitus, several episodes of hyperglycemia, A1c is 7.4, currently on scheduled Humalog and Lantus regimen. Uterine mass, likely fibroid, ultrasound in 3 months recommended by the director special education. History of elevated troponin, chronic meningioma, stable on imaging. Mild protein-calorie malnutrition. BMI 19.8, weight 50.802 kilograms. The patient is discharging to her home where she lives with her significant other. Her daughter, Florinda, is her DPOA. The patient is discharged on 1800-calorie diabetic diet. MEDICATIONS: Her medications are tabulated appropriately: Memantine, we will go ahead and go with the plateau dose of 10 mg b.i.d.; insulin Lantus 6 units subQ daily. She will be on scheduled trazodone. Insulin Humalog 6 units before meals, Keppra 750 mg p.o. b.i.d., given a 30-day script, olanzapine 2.5 mg b.i.d. at 0900 and 2100, famotidine 20 mg oral daily for GERD, cyanocobalamin 500 mcg oral daily, MiraLax 17 grams oral daily for bowel motility. The patient should have a.c. and at bedtime blood sugars at home and those should be logged and nursing staff to work with diabetes management. LABORATORY DATA: Significant laboratories this admission: H and H 11.1 and 33.3, white count 5.3, platelet count 208. Coags 11.4. PT/INR 1.05, APTT 24.3. Chemistries: Sodium 140, potassium 4.1, chloride 103, bicarbonate 32, anion gap 5, BUN 27, creatinine 0.7, estimated GFR 81, glucose 217, A1c 7.4, magnesium 1.9, total bilirubin 1.6. AST 22, ALT 20, alkaline phosphatase 57. Total protein 5.7, low. Albumin 3.0. Troponin I high sensitivity went from 57 to 69 to 66 on 09/27. Triglycerides 64, cholesterol 199, LDL 70, HDL 107. B12 of 400. Free T4 of 1.2, free T3 of 2.59. TSH slightly high at 5.53 for likely euthyroid sick syndrome. Urinalysis was clean. Toxicology negative. COVID-19 serology was falsely positive once on the 10/04, otherwise not detected. MICROBIOLOGY: Negative. [facility] [address] [place] [address] DISCHARGE SUMMARY Name: DORIS MARTINS Room #: 521A-A DIS IN M..#: [id number] Admission: 09/29/21 Attend Phys: Leonard Marcelino DO Discharge: 10/11/21 Date of : 42 Report #: [id number] IMAGING: This admission head MRI done 10/07, I believe she actually had a stroke concern, which showed unchanged mild focal cortical thickening, I believe. Left medial temporal lobe cerebral meningioma on the right lateral aspect of the anterior falx. REASON FOR ADMISSION: Back on the or so, an 81-year-old female initially admitted on 09/26 medically for heart attack and stroke concern. She had a largely negative workup. Meningioma was noticed in her brain. The patient had several recent episodes including one at [facility], leaving against medical advice. The patient was admitted to Geriatric Psychiatry Unit. The patient had a SLUMS score of 13-14/30. HOSPITAL COURSE: The patient was started on olanzapine 2.5 mg p.o. b.i.d. for impulse control. They had some disagreement between her son, Jessenia and daughter, Scarlet placement versus care at home, and eventually, Florinda who is the first appropriate DPOA as the original, Sergio is believed to have dementia, wants to try with home healthcare. Recommendation was for 24-hour assistance. The patient remains usually positive, but with poor insight throughout the hospitalization. The patient just thought she needed to go home, and on the day of discharge, she was not suicidal or homicidal. I should add that she had several low blood sugars in the 20s and 30s - attributed to both the prandial and sliding scale short-acting insulin regimens being utilized simultaneously. PHYSICAL EXAMINATION: VITAL SIGNS: Temperature at discharge is 36.3, pulse 73, respirations 16, BP 149/88, O2 sat 100%. MUSCULOSKELETAL: Wearing glasses, fairly dressed. Normal gait and station. MENTAL STATUS EXAMINATION: This is a well-developed, age-appearing female. Attention fair. Concentration limited. Speech normal rate, rhythm and tone. Thought process, linear and goal oriented. Thought content, focused on discharge. Denied SI, HI, auditory or visual type hallucinations. Denied hopelessness, helplessness. Mood was good and affect was congruent, euthymic, fair range. Memory not formally tested. Insight and judgment limited. Fund of knowledge below average. PROGNOSIS: For this patient is guarded given her age of 81 and having neurodegenerative disorder. <ELECTRONICALLY SIGNED> By: Leonard Marcelino DO 10/12/218 [id number] 1733 Leonard Marcelino, /nt
== END 2021-10-11 13:15 | disposition home or self-care (01) | DRG 56 ==
LOC: SBH 13:02
PROVIDERS: Hospitalist; Internal Medicine; ADMIT Psychiatry & Neurology Psychiatry; ATTEND Psychiatry & Neurology Psychiatry
DX: G30.9 Alzheimer's disease, unspecified (principal); G93.41 Metabolic encephalopathy; F01.51 Vascular dementia, unspecified severity, with behavioral disturbance; E44.1 Mild protein-calorie malnutrition; F02.81 Dementia in other diseases classified elsewhere, unspecified severity, with behavioral disturbance; Z68.1 Body mass index [BMI] 19.9 or less, adult; G40.909 Epilepsy, unspecified, not intractable, without status epilepticus; E07.81 Sick-euthyroid syndrome; E11.649 Type 2 diabetes mellitus with hypoglycemia without coma; Z20.822 Contact with and (suspected) exposure to COVID-19; N85.9 Noninflammatory disorder of uterus, unspecified; D32.9 Benign neoplasm of meninges, unspecified; Z90.49 Acquired absence of other specified parts of digestive tract; Z98.49 Cataract extraction status, unspecified eye; Z91.19 Patient's noncompliance with other medical treatment and regimen
CPT/HCPCS: 10880